=== PATIENT | female | born 1950 | race Caucasian/White ===

== ENCOUNTER 2021-04-07 04:38 | Observation (INO) | payer MEDICARE, MEDICAID ==
[~2021-04-07] VITALS: Ht 162.6 cm; Wt 83.2 kg
[2021-04-07] VITALS (8 sets, daily range): BP systolic 127–156; BP diastolic 69–88
[~2021-04-07 04:38] MED LIST: ACET12.57 PO; ASPI-485 PO; CETI10TA77 PO; CLOP75TA52 PO; DAPA10TA PO; DICL75TA2 PO; FLUT100B IH; FLUT16SP; GABA300C10 PO; GEMF600T20 PO; ISOS20TA9 PO; ISOS60TA57 PO; LISI1TAB20 PO; LISI1TAB23 PO; METF10007 PO; METO25TA2 PO; NYST15CR TP; TRAM50TA PO
--- NOTE | 2021-04-07 04:44 | NUR ---
Patient arrived to ED A&O x3, no acute distress noted; accompanied by her daughter. As per patient she has been having nausea and vomiting for the past 3 days. Connected to front tender. History of CHF, CAD, CABG X4, HTN, High Cholesterol, DM, Vertigo, Gout. Patient is allergic to darvocet. Family at bedside.
[2021-04-07] MEDS ORDERED: NS 500ML 500 ML IV STA ×2 (05:07→06:15)
[2021-04-07] MEDS ORDERED: ZOFRAN IV STA ×2 (05:07→06:17)
[2021-04-07] MEDS ORDERED: ZOFRAN ONE (05:16)
[2021-04-07] MEDS ORDERED: NS 1000ML 1,000 ML ONE (05:16)
--- NOTE | 2021-04-07 05:19 | ER.PDOC ---
General Chief Complaint: Nausea,Vomiting,Diarrhea Stated Complaint: VOMITING Time seen by : 05:00 Source: patient Exam Limitations: no limitations History of Present Illness Initial Comments She states she has been vomiting 2-3 times/day for the past 4 days. No diarrhea, bloody stools, abdominal pain. She states she has had 3 black stools in the past 24 hours. SHe states she has a history of GI bleed 4 years ago. She is taking aspirin, plavix, and diclofenac. She states she had an episode of chest pain in her left chest and took a nitro with relief of the pain. She states she got short of breath, nauseated, and clammy with the chest pain. She has a history of 4 stents. Last stent was 1 year ago. Visual Merchandising Coordinator is Dr. Adamson. Allergies: Coded Allergies: propoxyphene (Verified Allergy, Severe, SWELLING, 12/27/15) Home Meds Active Scripts Ascorbic Acid (VITAMIN C) 500 Mg Capsule.er, 1 CAP PO QD for 30 Days, #30 CAP 0 Refills Prov:EMY BURNETT MD 04/07/21 Vitamin E Mixed (VITAMIN E) 1,000 Unit Capsule, 1000 UNIT PO DAILY24, #30 CAPSULE Prov:EMY BURNETT MD 04/07/21 Chromium Picolinate (CHROMIUM PICOLINATE) 1,000 Mcg Tablet, 1000 MCG PO DAILY24 for 30 Days, TAB Prov:EMY BURNETT MD 04/07/21 Cranberry Extract (CRANBERRY) 250 Mg Capsule, 1 CAP PO BID PRN for BACK PAIN for 30 Days, #60 CAP 0 Refills Prov:EMY BURNETT MD 04/07/21 Echinacea (Echinacea) 380 Mg Capsule, 760 MG PO DAILY24, #60 CAPSULE Prov:EMY BURNETT MD 04/07/21 Ferrous Sulfate (IRON) 325 Mg Tablet, 1 TAB PO QD for 30 Days, #30 TAB 0 Refills Prov:EMY BURNETT MD 04/07/21 [place]-3 Fatty Acids/Fish Oil (OMEGA 3 1,000 MG SOFTGEL) 1 Each Capsule, 2 CAP PO BID for 30 Days, #60 CAP 0 Refills WITH MEALS Prov:EMY BURNETT MD 04/07/21 Nitroglycerin (NITROGLYCERIN) 0.4 Mg Tab.subl, 1 TAB SL PRN for chest pain, #25 TAB 0 Refills 1st sign of attack; may repeat every 5 mins; if pain persists after 3 in 15 min, medical attention is recommended Prov:EMY BURNETT MD 04/07/21 Atorvastatin 20MG (LIPITOR 20MG) 20 Mg Tablet, 1 TAB PO DAILY, #90 TAB 3 Refills Prov:EMY BURNETT MD 04/07/21 Lorazepam (ATIVAN) 0.5 Mg Tablet, 0.5 MG PO DAILY24 for 30 Days, TAB Prov:EMY BURNETT MD 04/07/21 Allopurinol (ALLOPURINOL) 300 Mg Tablet, 1 TAB PO DAILY, #30 TAB 3 Refills Prov:EMY BURNETT MD 04/07/21 Famotidine (FAMOTIDINE) 40 Mg Tablet, 1 TAB PO DAILY, #30 TAB 3 Refills Prov:EMY BURNETT MD 04/07/21 Empagliflozin (Jardiance) 25 Mg Tablet, 25 MG PO AM, #30 TAB Prov:EMY BURNETT MD 04/07/21 Fluoxetine Hcl (FLUOXETINE HCL) 40 Mg Capsule, 1 CAP PO DAILY, #30 CAP 2 Refills Prov:EMY BURNETT MD 04/07/21 Meclizine Hcl (MECLIZINE HCL) 25 Mg Tablet, 1 TAB PO TID, #90 TAB Prov:EMY BURNETT MD 04/07/21 Metoprolol Succinate (METOPROLOL SUCCINATE) 50 Mg Tab.er.24h, 1 TAB PO DAILY, #90 TAB 3 Refills Prov:EMY BURNETT MD 04/07/21 Isosorbide Mononitrate (ISOSORBIDE MONONITRATE ER) 60 Mg Tab.er.24h, 2 TAB PO DAILY, #30 TAB 5 Refills Prov:EMY BURNETT MD 04/07/21 Lisinopril/Hydrochlorothiazide (LISINOPRIL-HCTZ 10-12.5 MG TAB) 1 Each Tablet, 1 TAB PO DAILY, #30 TAB 5 Refills Prov:EMY BURNETT MD 04/07/21 Aspirin (ASPIRIN) 81 Mg Tab.chew, 1 TAB PO DAILY, #30 TAB 3 Refills Prov:EMY BURNETT MD 04/07/21 Gabapentin (GABAPENTIN) 600 Mg Tablet, 1 TAB PO TID, #90 TAB 3 Refills Prov:EMY BURNETT MD 04/07/21 Reported Medications Diclofenac Sodium (DICLOFENAC SODIUM) 75 Mg Tablet.dr, 1 TAB PO BID, #60 TAB 1 Refill 01/22/17 Gemfibrozil (GEMFIBROZIL) 600 Mg Tablet, 1 TAB PO BID, #60 TAB 5 Refills 03/15/16 Clopidogrel Bisulfate (PLAVIX) 75 Mg Tablet, 1 TAB PO DAILY, #90 TAB 1 Refill 03/10/16 Metformin Hcl (METFORMIN HCL) 1,000 Mg Tablet, 1 TAB PO BID, #60 TAB 5 Refills 12/27/15 Discontinued Reported Medications Fluticasone Propionate (FLUTICASONE PROPIONATE) 16 Gm [place].susp, 2 SPR NA DAILY, #1 INHALER 11 Refills 03/10/16 Metoprolol Succinate (TOPROL XL) 25 Mg Tab.er.24h, 1 TAB PO DAILY, #30 TAB 5 Refills 03/10/16 Cetirizine Hcl (ZYRTEC) 10 Mg Tablet, 1 TAB PO DAILY, #30 TAB 2 Refills 12/27/15 Acetaminophen with Codeine (Acetamin-Codein 300-30 mg/12.5) 12.5 Ml Solution, 12.5 ML PO TID 12/27/15 Gabapentin (GABAPENTIN) 300 Mg Capsule, 1 CAP PO TID, #90 CAP 5 Refills 12/27/15 Dapagliflozin Propanediol (Farxiga) 10 Mg Tablet, 10 MG PO DAILY, TABLET 12/27/15 Vital Signs First Vital Signs Date Time Temp Pulse Resp B/P (MAP) Pulse Ox O2 Delivery O2 Flow Rate FiO2 04/07/21 04:44 97.9 19 19 156/84 (108) 95 Room Air Last Vital Signs Date Time Temp Pulse Resp B/P (MAP) Pulse Ox O2 Delivery O2 Flow Rate FiO2 04/07/21 05:43 97.5 113 20 127/77 (94) 93 Room Air Past Medical History Medical History: coronary artery disease, cardiac problems, diabetes, high cholesterol, hypertension Surgical History: appendectomy, cholecystectomy, hysterectomy, stent Family History Significant Family History: heart disease Social History Smoking: non-smoker Alcohol Use: none Drug Use: none Constitutional: denies fever EENTM: denies ear pain, denies throat pain Respiratory: denies cough; shortness of breath Cardiovascular: chest pain; denies lightheadedness, denies syncope Gastrointestinal: denies abdominal pain, denies diarrhea; nausea; denies rectal bleeding; vomiting Genitourinary: denies dysuria, denies hematuria Musculoskeletal: denies back pain Skin: denies change in color, denies rash Hematologic/Lymphatic: easy bleeding, easy bruising All Other Systems: Reviewed and Negative Physical Exam General Appearance: No Apparent Distress, WD/WN, Obese HEENT: PERRL/EOMI, Normal ENT Inspection, Pharynx Normal Neck: Non-Tender, Full Range of Motion, Supple, Normal Inspection Respiratory: chest non-tender, lungs clear, normal breath sounds, no respiratory distress, no accessory muscle use Cardiovascular: Normal Peripheral Pulses, Regular Rate, Rhythm, No Edema, No Murmur, Tachycardia Gastrointestinal: Normal Bowel Sounds, Non Tender, Soft, Other (morbidly obese) Rectal: Normal Rectal Tone, Black Stool Back: Normal Inspection, No CVA Tenderness, No Vertebral Tenderness Extremities: Normal Range of Motion, Non-Tender, Normal Inspection, No Pedal Edema, No Calf Tenderness, Normal Capillary Refill, Pelvis Stable Neurologic/Psychiatric: jitterbug operator II-XII NML as Tested, No Motor/Sensory Deficits, Alert, Normal Mood/Affect, Oriented x 3 Skin: Warm/Dry, Pallor Results/Orders Results/Orders Orders - EMY BURNETT MD Cbc With Auto Diff (04/07/21 05:07) Comprehensive Metabolic Panel (04/07/21 05:07) Troponin I (04/07/21 05:07) Probnp B-Type Forestry Crew Chief (04/07/21 05:07) PT (04/07/21 05:07) Partial Thromboplastin Time. (04/07/21 05:07) Helicobacter Pylori (04/07/21 05:07) Ekg-Routine (04/07/21 05:07) Saline Lock (04/07/21 05:07) Lipase (04/07/21 05:07) Ondansetron Hcl/Pf (Zofran) (04/07/21 05:07) 0.9 % Sodium Chloride (Ns 500ml) (04/07/21 05:07) 0.9 % Sodium Chloride (Ns 1000ml) (04/07/21 05:16) Ondansetron Hcl/Pf (Zofran) (04/07/21 05:16) Urinalysis (04/07/21 05:20) 0.9 % Sodium Chloride (Ns 500ml) (04/07/21 06:15) Ondansetron Hcl/Pf (Zofran) (04/07/21 06:17) Pantoprazole Sodium (Protonix Iv) (04/07/21 06:17) Admit Orders (04/07/21 06:21) Vital Signs Date Time Temp Pulse Resp B/P (MAP) Pulse Ox O2 Delivery O2 Flow Rate FiO2 04/07/21 05:43 97.5 113 20 127/77 (94) 93 Room Air 04/07/21 04:44 97.9 119 19 04/07/21 04:44 97.9 119 19 95 04/07/21 04:44 97.9 19 19 156/84 (108) 95 Room Air Administered Medications Medications (Trade) Dose Ordered Sig/Tete Route PRN Reason Start Time Stop Time Status Last Admin Dose Admin Ondansetron HCl (Zofran) 4 mg OT STAT IV 04/07/21 05:07 04/07/21 05:12 DC 04/07/21 05:21 4 MG Ondansetron HCl (Zofran) 4 mg OT STAT IV 04/07/21 06:17 04/07/21 06:18 UNV 04/07/21 06:24 4 MG Sodium Chloride 500 ml @ 500 mls/hr OT STAT IV 04/07/21 05:07 04/07/21 06:07 DC 04/07/21 05:21 500 MLS/HR Sodium Chloride 500 ml @ 500 mls/hr OT STAT IV 04/07/21 06:15 04/07/21 07:14 UNV 04/07/21 06:17 500 MLS/HR Laboratory Tests Test 04/07/21 05:07 04/07/21 05:15 04/07/21 05:35 POC Stool Occult Blood POSITIVE (NEGATIVE) Helicobacter pylori Screen NEGATIVE (NEGATIVE) White Blood Count 9.6 10^3/uL (4.5-11.0) Red Blood Count 3.71 10^6/uL (4.00-5.20) L Hemoglobin 11.2 g/dL (12.0-15.0) L Hematocrit 35.0 % (36.0-46.0) L Mean Corpuscular Volume 94.3 fL (78-100) Mean Corpuscular Hemoglobin 30.2 pg (26-34) Mean Corpuscular Hemoglobin Concent 32.0 g/dL (33-36.5) L Red Cell Distribution Width 14.7 % (11.5-14.5) H Platelet Count 326 10^3/uL (150-400) Mean Platelet Volume 8.4 fL (7.8-11.0) Neutrophils (%) (Auto) 67.9 % (41.0-85.0) Lymphocytes (%) (Auto) 19.5 % (24.0-44.0) L Monocytes (%) (Auto) 11.1 % (5.0-12.0) Neutrophils # (Auto) 6.5 10^3/uL (1.8-7.7) Lymphocytes # (Auto) 1.87 10^3/uL1 (1.0-4.8) Monocytes # (Auto) 1.1 10^3/uL (0.3-0.8) H Absolute Immature Granulocyte (auto 0.04 10^3 u/L (0-2) Absolute Eosinophils (auto) 0.1 10^3/uL (0.0-0.2) Immature Granulocytes % 0.40 % (0.00-0.50) Eosinophils % 0.6 % (0.0-5.0) Basophils % 0.5 % (0.0-0.2) H Basophils # 0.1 10^3/uL (0.0-0.1) Prothrombin Time 12.1 SEC (9.6-12.0) H Prothrombin Time INR (Non-Therap) 1.1 Activated Partial Thromboplast Time 23.2 SEC (24.67-30.72) Sodium Level 135 mmol/L (132-145) Potassium Level 4.7 mmol/L (3.6-5.2) Chloride Level 101.0 mmol/L (96-109) Carbon Dioxide Level 19.1 mmol/L (20.0-32) L Anion Gap 19.6 Blood Urea Nitrogen 14 mg/dL (7-18) Creatinine 0.70 mg/dL (0.59-1.40) Estimated GFR () 100.7 (>/=60) Est GFR (CKD-EPI)(Non-Afr [place]) 83.2 (>/=60) BUN/Creatinine Ratio 20.0 Glucose Level 141 mg/dL (70-110) H Calcium Level 9.2 mg/dL (8.4-10.5) Total Bilirubin 0.3 mg/dL (0.2-1.0) Aspartate Amino Transferase (AST) 23 U/L (0-35) Alanine Aminotransferase (ALT) 23 U/L (12-78) Alkaline Phosphatase 52 U/L (50-136) Troponin I < 0.02 ng/mL (0.00-0.05) Pro-B-Type Natriuretic Peptide 116 pg/mL (0-125) Total Protein 7.8 g/dL (6.4-8.2) Albumin 3.5 g/dL (3.4-5.0) Globulin 4.3 Albumin/Globulin Ratio 0.813 Lipase 269 U/L (114-286) Progress Progress CBC shows Hgb 11.2, HCT 33 down from Hgb 14, 4 years ago. Stool occult blood positive. H. Pylori negative.CMP shows CO2 19, otherwise unremarkable. PT/PTT mildly elevated. INR normal. ECG sinus tachycardia, Q-waves in inferior leads, poor R-waves in anterior leads, non specific ST changes. Troponin negative. She was given two, 500 ml IV bolus and zofran 2 doses, 4 mg IVP with improvement in her heart rate and nausea. She was given protonix for upper GI bleed. She has upper GI bleed, vomiting, chest pain and will need to be admitted for further evaluation and treatment. At [address] Simmons who agreed to admit the pt. EKG/XRAY/CT/US EKG: NSR (tachycardia), QRS (poor R-wave rpogression), nonspecific ST T wave chg, abnormal Q waves (inferior leads) ER DEPART Departure Time of Disposition: 06:25 Disposition: 09 ADMITTED INPATIENT Impression: Primary Impression: GI bleed Additional Impressions: Unstable angina Vomiting Condition: Improved If Transfer, List PT Destinati: 624 Dr. Simmons agrees to admit pt. Referrals: DAYAMI ARANDA GLOVE CLEANER (PCP) PRIMARY CARE PROVIDER Scripts Ascorbic Acid (VITAMIN C) 500 Mg Capsule.er 1 CAP PO QD for 30 Days, #30 CAP 0 Refills Prov: EMY BURNETT MD 04/07/21 Vitamin E Mixed (VITAMIN E) 1,000 Unit Capsule 1000 UNIT PO DAILY24, #30 CAPSULE Prov: EMY BURNETT MD 04/07/21 Chromium Picolinate (CHROMIUM PICOLINATE) 1,000 Mcg Tablet 1000 MCG PO DAILY24 for 30 Days, TAB Prov: EMY BURNETT MD 04/07/21 Cranberry Extract (CRANBERRY) 250 Mg Capsule 1 CAP PO BID PRN for BACK PAIN for 30 Days, #60 CAP 0 Refills Prov: EMY BURNETT MD 04/07/21 Echinacea (Echinacea) 380 Mg Capsule 760 MG PO DAILY24, #60 CAPSULE Prov: EMY BURNETT MD 04/07/21 Ferrous Sulfate (IRON) 325 Mg Tablet 1 TAB PO QD for 30 Days, #30 TAB 0 Refills Prov: EMY BURNETT MD 04/07/21 [place]-3 Fatty Acids/Fish Oil (OMEGA 3 1,000 MG SOFTGEL) 1 Each Capsule 2 CAP PO BID for 30 Days, #60 CAP 0 Refills WITH MEALS Prov: EMY BURNETT MD 04/07/21 Nitroglycerin (NITROGLYCERIN) 0.4 Mg Tab.subl 1 TAB SL PRN for chest pain, #25 TAB 0 Refills 1st sign of attack; may repeat every 5 mins; if pain persists after 3 in 15 min, medical attention is recommended Prov: EMY BURNETT MD 04/07/21 Atorvastatin 20MG (LIPITOR 20MG) 20 Mg Tablet 1 TAB PO DAILY, #90 TAB 3 Refills Prov: EMY BURNETT MD 04/07/21 Lorazepam (ATIVAN) 0.5 Mg Tablet 0.5 MG PO DAILY24 for 30 Days, TAB Prov: EMY BURNETT MD 04/07/21 Allopurinol (ALLOPURINOL) 300 Mg Tablet 1 TAB PO DAILY, #30 TAB 3 Refills Prov: EMY BURNETT MD 04/07/21 Famotidine (FAMOTIDINE) 40 Mg Tablet 1 TAB PO DAILY, #30 TAB 3 Refills Prov: EMY BURNETT MD 04/07/21 Empagliflozin (Jardiance) 25 Mg Tablet 25 MG PO AM, #30 TAB Prov: EMY BURNETT MD 04/07/21 Fluoxetine Hcl (FLUOXETINE HCL) 40 Mg Capsule 1 CAP PO DAILY, #30 CAP 2 Refills Prov: EMY BURNETT MD 04/07/21 Meclizine Hcl (MECLIZINE HCL) 25 Mg Tablet 1 TAB PO TID, #90 TAB Prov: EMY BURNETT MD 04/07/21 Metoprolol Succinate (METOPROLOL SUCCINATE) 50 Mg Tab.er.24h 1 TAB PO DAILY, #90 TAB 3 Refills Prov: EMY BURNETT MD 04/07/21 Isosorbide Mononitrate (ISOSORBIDE MONONITRATE ER) 60 Mg Tab.er.24h 2 TAB PO DAILY, #30 TAB 5 Refills Prov: EMY BURNETT MD 04/07/21 Lisinopril/Hydrochlorothiazide (LISINOPRIL-HCTZ 10-12.5 MG TAB) 1 Each Tablet 1 TAB PO DAILY, #30 TAB 5 Refills Prov: EMY BURNETT MD 04/07/21 Aspirin (ASPIRIN) 81 Mg Tab.chew 1 TAB PO DAILY, #30 TAB 3 Refills Prov: EMY BURNETT MD 04/07/21 Gabapentin (GABAPENTIN) 600 Mg Tablet 1 TAB PO TID, #90 TAB 3 Refills Prov: EMY BURNETT MD 04/07/21 Duration or Time Spent with Pa: 40 min Critical Care Note Total Time (mins): 30 Comments pt. with tachycardia and GI bleed history. Chris was given 2 boluses of IVF with improvement in HR. Critical care time included obtaining history, physical exam, ordering studies, reevaluation of pt. after treatment, evaluation of lab studies, Problem Qualifiers Primary Impression: GI bleed GI bleed type/associated pathology: unspecified gastrointestinal hemorrhage type Qualified Codes: K92.2 - Gastrointestinal hemorrhage, unspecified Additional Impressions: Vomiting Vomiting type: unspecified Vomiting Intractability: non-intractable Nausea presence: with nausea Qualified Codes: R11.2 - Nausea with vomiting, unspecified EMY BURNETT MD Apr 07, 2021 05:18
[2021-04-07 05:44] LABS: BASOPHIL # 0.1 10^3/uL (0.0-0.1); BASOPHIL % 0.5 % (0.0-0.2); EOSINOPHIL # 0.1 10^3/uL (0.0-0.2); EOSINOPHIL % 0.6 % (0.0-5.0); LYMPHOCYTES # 1.87 10^3/uL1 (1.0-4.8); LYMPHOCYTES % 19.5 % (24.0-44.0); MEAN CORP HGB 30.2 pg (26-34); MONOCYTES # 1.1 10^3/uL (0.3-0.8); MONOCYTES % 11.1 % (5.0-12.0); NEUTROPHIL # 6.5 10^3/uL (1.8-7.7); NEUTROPHILS % 67.9 % (41.0-85.0); PLATELET COUNT 326 10^3/uL (150-400); RED CELL DISTRIBUTION WIDTH 14.7 % (11.5-14.5)
--- NOTE | 2021-04-07 05:45 | PCM.EKG ---
[facility] Test Date: 2021-04-07 Test Time: 05:35:29 Pat Name: ESTELLA MARRERO Department: Room: Gender: F Branch Officer: ROSA : 1950 Requested By: EMY BURNETT Order Number: [id number] Reading MD: Measurements Intervals [place] Rate: 112 P: 25 NM: 154 QRS: -43 QRSD: 76 T: 11 QT: 368 QTc: 503 Interpretive Statements Sinus tachycardia Inferior infarct, old Consider anterior infarct Prolonged QT interval Baseline wander in lead(s) V4 Compared to ECG 04/29/2019 15:32:04 Prolonged QT interval now present Sinus rhythm no longer present Myocardial infarct finding still present Please click the below link to view image of tracing.
[2021-04-07 06:12] LABS: ALANINE AMINOTRANSFERASE(ML) 23 U/L (12-78); ALKALINE PHOSPHATASE 52 U/L (50-136); ASPARTATE AMINO TRANSFERASE 23 U/L (0-35); CALCIUM 9.2 mg/dL (8.4-10.5); CARBON DIOXIDE 19.1 mmol/L (20.0-32); GLUCOSE 141 mg/dL (70-110)
[2021-04-07] MEDS ORDERED: PROTONIX IV IV STA (06:17)
[2021-04-07] MEDS ORDERED: GABA600T7 PO (06:23)
[2021-04-07] MEDS ORDERED: FERR-39 PO (06:23)
[2021-04-07] MEDS ORDERED: VITA100018 PO (06:23)
[2021-04-07] MEDS ORDERED: EMPA25TA PO (06:23)
[2021-04-07] MEDS ORDERED: MECL-95 PO (06:23)
[2021-04-07] MEDS ORDERED: LISI1TAB23 PO (06:23)
[2021-04-07] MEDS ORDERED: ECHI380C3 PO (06:23)
[2021-04-07] MEDS ORDERED: NITR0.4T26 SL (06:23)
[2021-04-07] MEDS ORDERED: ALLO300T PO (06:23)
[2021-04-07] MEDS ORDERED: FAMO40TA4 PO (06:23)
[2021-04-07] MEDS ORDERED: CHRO1000 PO (06:23)
[2021-04-07] MEDS ORDERED: ISOS60TA57 PO (06:23)
[2021-04-07] MEDS ORDERED: ASPI-667 PO (06:23)
[2021-04-07] MEDS ORDERED: CRAN250C PO (06:23)
[2021-04-07] MEDS ORDERED: ASCO500C PO (06:23)
[2021-04-07] MEDS ORDERED: FLUO40CA2 PO (06:23)
[2021-04-07] MEDS ORDERED: ATOR20TA PO (06:23)
[2021-04-07] MEDS ORDERED: OMEG-13 PO (06:23)
[2021-04-07] MEDS ORDERED: METO-237 PO (06:23)
[2021-04-07] MEDS ORDERED: LORA-447 PO (06:23)
--- NOTE | 2021-04-07 08:00 | NUR ---
ARRIVAL PT ARRIVED TO UNIT AT THIS TIME IN STABLE CONDITION. THIS NURSE ASSUMED CARE OF PT AT THIS TIME.
--- NOTE | 2021-04-07 09:35 | PCM.HP ---
History of Present Illness Reason for Visit: Nausea and vomiting History of Present Illness Ms. Pham is a 70-year-old female with a past medical history of CAD status post 4 stents, Type 2 diabetes, hyperlipidemia, hypertension, and CKD Presents to the ED due to multiple days of nausea and vomiting. Patient reports nausea and vomiting 3-4 times per day since this past Friday is unable to keep any food down. She denies any blood in the vomit. She does endorse having constipation for the past several weeks. Other symptoms include epigastric pain that started this morning in addition describes as dull 8 or 10 pain that is constant. Stool occult blood in the ED was found to be positive. Patient endorses taking aspirin, plavix, and diclofenac. Past Medical History Cardiac: CAD, HTN, Hyperlipidemia, Other Pulmonary: COPD Renal/: Chronic Renal Insuff Endocrine: Diabetes, Hypothyroidism Past Surgical History: Other Past Social History Smoke: No Alcohol: rare Lives: with Family Travel Hx EBOLA RISK:Travel to/contact w: No Review of Systems Constitutional: Chills, Weakness; No: Fever Eyes: No: Pain, Vision change, Conjunctivae inflammation ENT: No: Throat pain, Throat swelling Respiratory: Shortness of breath Cardiovascular: No: Chest Pain, Palpitations Gastrointestinal: Nausea, Vomiting, Abdominal Pain, Constipation; No: Diarrhea Genitourinary: No Dysuria, No Frequency, No Incontinence Musculoskeletal: No: neck pain, shoulder pain, back pain Skin: No: Rash, Lesions, Jaundice Neurological: No: Weakness, Numbness, Incoordination, Change in speech Allergies: Coded Allergies: propoxyphene (Verified Allergy, Severe, SWELLING, 12/27/15) Scheduled Allopurinol (Allopurinol), 1 TAB PO DAILY Ascorbic Acid (Vitamin C), 1 CAP PO QD Aspirin (Aspirin), 1 TAB PO DAILY Atorvastatin 20MG (Lipitor 20MG), 1 TAB PO DAILY Chromium Picolinate (Chromium Picolinate), 1,000 MCG PO DAILY24 Clopidogrel Bisulfate (Plavix), 1 TAB PO DAILY, (Reported) Diclofenac Sodium (Diclofenac Sodium), 1 TAB PO BID, (Reported) Echinacea (Echinacea), 760 MG PO DAILY24 Empagliflozin (Jardiance), 25 MG PO AM Famotidine (Famotidine), 1 TAB PO DAILY Ferrous Sulfate (Iron), 1 TAB PO QD Fluoxetine Hcl (Fluoxetine Hcl), 1 CAP PO DAILY Gabapentin (Gabapentin), 1 TAB PO TID Gemfibrozil (Gemfibrozil), 1 TAB PO BID, (Reported) Isosorbide Mononitrate (Isosorbide Mononitrate Er), 2 TAB PO DAILY Lisinopril/Hydrochlorothiazide (Lisinopril-Hctz 10-12.5 Mg Tab), 1 TAB PO DAILY Lorazepam (Ativan), 0.5 MG PO DAILY24 Meclizine Hcl (Meclizine Hcl), 1 TAB PO TID Metformin Hcl (Metformin Hcl), 1 TAB PO BID, (Reported) Metoprolol Succinate (Metoprolol Succinate), 1 TAB PO DAILY Nitroglycerin (Nitroglycerin), 1 TAB SL PRN [place]-3 Fatty Acids/Fish Oil ([place] 3 1,000 Mg Softgel), 2 CAP PO BID Vitamin E Mixed (Vitamin E), 1,000 UNIT PO DAILY24 Scheduled PRN Cranberry Extract (Cranberry), 1 CAP PO BID PRN for BACK PAIN Discontinued Medications Acetaminophen with Codeine (Acetamin-Codein 300-30 mg/12.5), 12.5 ML PO TID, (Reported) Discontinued Reason: No Longer Taking Cetirizine Hcl (Zyrtec), 1 TAB PO DAILY, (Reported) Discontinued Reason: No Longer Taking Dapagliflozin Propanediol (Farxiga), 10 MG PO DAILY, (Reported) Discontinued Reason: Discontinue Fluticasone Propionate (Fluticasone Propionate), 2 SPR NA DAILY, (Reported) Discontinued Reason: No Longer Taking Gabapentin (Gabapentin), 1 CAP PO TID, (Reported) Discontinued Reason: Prescription changed Metoprolol Succinate (Toprol Xl), 1 TAB PO DAILY, (Reported) Discontinued Reason: Prescription changed VTE VTE Risk Total Score: 3 VTE Risk Score VTE Risk: Score 0-1 = Low Risk (Aggressive mobilization; early ambulation; no VTE prophylaxis required) Score 2: Moderate Risk (Intermittent/Pneumatic Compression Device OR Lovenox/Heparin/Coumadin) Score 3-4: High Risk (Intermittent/Pneumatic Compression Device AND Lovenox/Heparin/Coumadin) Score > or =5: Highest Risk (Intermittent/Pneumatic Compression Device AND Lovenox/Heparin/Coumadin) VTE VTE Present on Admission: No Currently receiving anticoagul: No VTE Risk Total Score: 3 Exam Vital Signs Vital Signs Date Time Temp Pulse Resp B/P (MAP) Pulse Ox O2 Delivery O2 Flow Rate FiO2 04/07/21 07:12 97.5 105 20 147/74 (98) 97 Room Air General Appearance: Alert, Oriented X3, Cooperative HEENT: Atraumatic, PERRLA, EOMI Respiratory: Clear to auscultation, Normal air movement Cardiovascular: Regular rate, No murmurs Abdominal: Normal bowel sounds, Soft, Other (epigastric tenderness ) Extremities: No clubbing, No cyanosis, No edema Skin: No rash, No lesions Neuro: Normal speech, Normal tone Psych/Mental Status: Mental status NL, Mood NL Assessment/Plan Assessment/Plan Assessment/Plan ASSESSMENT Acute GI bleed CAD s/p 4 stents Hypertension Hyperlipidemia Non insulin dependent Type 2 diabetes PLAN keep NPO, protonic IV BID Trend hgb Hold home medications while NPO Will consult Surgery to consider EGD SSI Fluid resuscitate DVT: SCDs Code: Full Patient History: Cerebrovascular disorder 32 MOTHER, Onset:60 years & older Congestive heart failure 32 MOTHER, Onset:60 years & older 33 FATHER, Onset:60 years & older Diabetes insipidus 32 MOTHER 33 FATHER, Onset:50's - 60 G8 BROTHER, Onset:40's - 50 G8 SISTER, Onset:40's - 50 Hypertension ISABELLA JONES MD Apr 07, 2021 09:35
[2021-04-07] MEDS ORDERED: ZOFRAN IV PRN (12:30)
--- NOTE | 2021-04-07 12:43 | PRM.CONS ---
Consultation Reason for Consult: Reason for Consultation: Abdominal pain, GI bleed, decreased hemoglobin History of Present Illness History of Patient Comments Patient states that she began having epigastric pain and nausea on Friday. The nausea progressed to vomiting. She was barely able to keep water down. She continued to take her medications, which include a baby aspirin, Plavix, and diclofenac.She was not able to eat most of the week, and continued with the nausea and pain. She then began having bowel movements and lower abdominal pain. Eventually, she did tell her daughter she did not feel well, and a neighbor called the daughter, leading to her transportation to the emergency room. Patient states that she has not thrown up since before she came to the emergency room. She has not had any bowel movement since she has been here. The epigastric pain is still there, but has slightly improved. She still has some pain in her lower abdomen going across, which has been a chronic problem for her. She did have a bleeding ulcer approximately 5-1/2 years ago, and at that time she underwent an EGD. She has never had a colonoscopy.She has not been on any H2 blockers. She has had 4 stents, and the last one was more than 1 year ago.She has had 1 [place]. Vitals & Lab Laboratory Tests Test 04/07/21 05:07 04/07/21 05:15 04/07/21 05:35 04/07/21 11:33 Bedside Stool Occult Blood POSITIVE Helicobacter pylori Screen NEGATIVE White Blood Count 9.6 10^3/uL Red Blood Count 3.71 10^6/uL Hemoglobin 11.2 g/dL Hematocrit 35.0 % Mean Corpuscular Volume 94.3 fL Mean Corpuscular Hemoglobin 30.2 pg Mean Corpuscular Hemoglobin Concent 32.0 g/dL Red Cell Distribution Width 14.7 % Platelet Count 326 10^3/uL Mean Platelet Volume 8.4 fL Neutrophils (%) (Auto) 67.9 % Lymphocytes (%) (Auto) 19.5 % Monocytes (%) (Auto) 11.1 % Neutrophils # (Auto) 6.5 10^3/uL Lymphocytes # (Auto) 1.87 10^3/uL1 Monocytes # (Auto) 1.1 10^3/uL Absolute Immature Granulocyte (auto 0.04 10^3 u/L Absolute Eosinophils (auto) 0.1 10^3/uL Immature Granulocytes % 0.40 % Eosinophils % 0.6 % Basophils % 0.5 % Basophils # 0.1 10^3/uL Prothrombin Time 12.1 SEC Prothrombin Time INR (Non-Therap) 1.1 Activated Partial Thromboplast Time 23.2 SEC Sodium Level 135 mmol/L Potassium Level 4.7 mmol/L Chloride Level 101.0 mmol/L Carbon Dioxide Level 19.1 mmol/L Anion Gap 19.6 Blood Urea Nitrogen 14 mg/dL Creatinine 0.70 mg/dL Estimated GFR () 100.7 Est GFR (CKD-EPI)(Non-Afr [place]) 83.2 BUN/Creatinine Ratio 20.0 Glucose Level 141 mg/dL Calcium Level 9.2 mg/dL Total Bilirubin 0.3 mg/dL Aspartate Amino Transf (AST/SGOT) 23 U/L Alanine Aminotransferase (ALT/SGPT) 23 U/L Alkaline Phosphatase 52 U/L Troponin I < 0.02 ng/mL Pro-B-Type Natriuretic Peptide 116 pg/mL Total Protein 7.8 g/dL Albumin 3.5 g/dL Globulin 4.3 Albumin/Globulin Ratio 0.813 Lipase 269 U/L Bedside Glucose 116 Test 04/07/21 12:00 Hemoglobin 10.6 g/dL Current Medications Medications (Trade) Dose Ordered Sig/Tete Route PRN Reason Start Time Stop Time Status Last Admin Dose Admin Ondansetron HCl (Zofran) 4 mg OT STAT IV 04/07/21 05:07 04/07/21 05:12 DC 04/07/21 05:21 Sodium Chloride 500 ml @ 500 mls/hr OT STAT IV 04/07/21 05:07 04/07/21 06:07 DC 04/07/21 05:21 Sodium Chloride 1,000 ml @ ud STK-MED ONCE .ROUTE 04/07/21 05:16 04/07/21 05:17 DC Ondansetron HCl (Zofran) 4 mg STK-MED ONCE .ROUTE 04/07/21 05:16 04/07/21 05:17 DC Sodium Chloride 500 ml @ 500 mls/hr OT STAT IV 04/07/21 06:15 04/07/21 09:25 DC 04/07/21 06:17 Ondansetron HCl (Zofran) 4 mg OT STAT IV 04/07/21 06:17 04/07/21 09:25 DC 04/07/21 06:24 Pantoprazole Sodium (Protonix Iv) 40 mg STAT STAT IV 04/07/21 06:17 04/07/21 09:25 DC 04/07/21 06:25 Pantoprazole Sodium (Protonix Iv) 40 mg BID IV 04/07/21 21:00 05/07/21 20:59 Ondansetron HCl (Zofran) 4 mg Q6HR PRN IV NAUSEA / VOMITING 04/07/21 12:30 05/07/21 12:29 Review of Systems Constitutional: Weakness, Malaise; No: Fever, Chills Eyes: No: Pain, Vision change, Conjunctivae inflammation, Eyelid inflammation, Redness ENT: No: Ear pain, Ear discharge, Nose pain, Nose discharge, Nose congestion, Mouth pain, Throat pain, Throat swelling Respiratory: Shortness of breath; No: Cough, Dry, Wheezing, Hemoptysis, Pleuritic Pain, Sputum Cardiovascular: Lt Headedness; No: Chest Pain, Palpitations Gastrointestinal: Nausea, Vomiting, Abdominal Pain, Constipation; No: Diarrhea Genitourinary: No Dysuria, No Frequency, No Incontinence, No Hematuria Musculoskeletal: No: neck pain, shoulder pain, arm pain, back pain, hand pain, leg pain, foot pain Skin: No: Rash, Lesions, Jaundice Neurological: No: Weakness, Numbness, Incoordination, Change in speech Other Patient is awake alert and oriented x3. EOMI. PERRLA. Heart is regular rate and rhythm. Lungs are clear to auscultation bilaterally. Abdomen is soft with good bowel sounds. Patient is slightly tender to palpation in the epigastric region. Abdomen is soft and without distention. She does state that it hurts with palpation all the way across her lower abdomen, essentially from iliac crest to iliac crest. She states it is more pain than a simple spasm.Pulses in all extremities with good range of motion. No evidence of neurologic deficit, but the patient is in bed. Allergies: Coded Allergies: propoxyphene (Verified Allergy, Severe, SWELLING, 12/27/15) Scheduled Allopurinol (Allopurinol), 1 TAB PO DAILY Ascorbic Acid (Vitamin C), 1 CAP PO QD Aspirin (Aspirin), 1 TAB PO DAILY Atorvastatin 20MG (Lipitor 20MG), 1 TAB PO DAILY Chromium Picolinate (Chromium Picolinate), 1,000 MCG PO DAILY24 Clopidogrel Bisulfate (Plavix), 1 TAB PO DAILY, (Reported) Diclofenac Sodium (Diclofenac Sodium), 1 TAB PO BID, (Reported) Echinacea (Echinacea), 760 MG PO DAILY24 Empagliflozin (Jardiance), 25 MG PO AM Famotidine (Famotidine), 1 TAB PO DAILY Ferrous Sulfate (Iron), 1 TAB PO QD Fluoxetine Hcl (Fluoxetine Hcl), 1 CAP PO DAILY Gabapentin (Gabapentin), 1 TAB PO TID Gemfibrozil (Gemfibrozil), 1 TAB PO BID, (Reported) Isosorbide Mononitrate (Isosorbide Mononitrate Er), 2 TAB PO DAILY Lisinopril/Hydrochlorothiazide (Lisinopril-Hctz 10-12.5 Mg Tab), 1 TAB PO DAILY Lorazepam (Ativan), 0.5 MG PO DAILY24 Meclizine Hcl (Meclizine Hcl), 1 TAB PO TID Metformin Hcl (Metformin Hcl), 1 TAB PO BID, (Reported) Metoprolol Succinate (Metoprolol Succinate), 1 TAB PO DAILY Nitroglycerin (Nitroglycerin), 1 TAB SL PRN [place]-3 Fatty Acids/Fish Oil ([place] 3 1,000 Mg Softgel), 2 CAP PO BID Vitamin E Mixed (Vitamin E), 1,000 UNIT PO DAILY24 Scheduled PRN Cranberry Extract (Cranberry), 1 CAP PO BID PRN for BACK PAIN Discontinued Medications Acetaminophen with Codeine (Acetamin-Codein 300-30 mg/12.5), 12.5 ML PO TID, (Reported) Discontinued Reason: No Longer Taking Cetirizine Hcl (Zyrtec), 1 TAB PO DAILY, (Reported) Discontinued Reason: No Longer Taking Dapagliflozin Propanediol (Farxiga), 10 MG PO DAILY, (Reported) Discontinued Reason: Discontinue Fluticasone Propionate (Fluticasone Propionate), 2 SPR NA DAILY, (Reported) Discontinued Reason: No Longer Taking Gabapentin (Gabapentin), 1 CAP PO TID, (Reported) Discontinued Reason: Prescription changed Metoprolol Succinate (Toprol Xl), 1 TAB PO DAILY, (Reported) Discontinued Reason: Prescription changed VTE VTE Risk Total Score: 2 VTE Risk Score VTE Risk: Score 0-1 = Low Risk (Aggressive mobilization; early ambulation; no VTE prophylaxis required) Score 2: Moderate Risk (Intermittent/Pneumatic Compression Device OR Lovenox/Heparin/Coumadin) Score 3-4: High Risk (Intermittent/Pneumatic Compression Device AND Lovenox/Heparin/Coumadin) Score > or =5: Highest Risk (Intermittent/Pneumatic Compression Device AND Lovenox/Heparin/Coumadin) Assessment/Plan Assessment/Plan Assessment/Plan ASSESSMENT Acute GI bleed CAD s/p 4 stents Hypertension Hyperlipidemia Non insulin dependent Type 2 diabetes PLAN keep NPO, protonic IV BID Trend hgb Hold home medications while NPO Will consult Surgery to consider EGD SSI Fluid resuscitate DVT: SCDs Code: Full The fact that the patient has not had any more emesis or bowel movements since being in the hospitalWould seem to indicate that the bleeding has decreased or stopped. She still has significant abdominal pain. I would like to monitor her further, watch her hemoglobins, and continue the H2 negrito. We will start some clears. If she improves, it is possible she may be discharged home, if not we will monitor her further. If she does Rebleed or have other issues, we may consider doing an upper scope or EGD today or in the morning.If she continues to improve and remained stable, she will be ultimately discharged home with a follow-up with Dr. Beaver in a few weeks to undergo upper and lower endoscopy.As per my conversation with Dr. Simmons, we will consider notifying the web retailer to question him on whether or not she still needs to remain on the Plavix, and this was mentioned with the family. It will be up to the car diologist, depending on the type of stent present. Also, we would like her off the diclofenac, and certainly make sure that she does take any meds such as aspirin or ibuprofen when she has food. Patient and family acknowledged. Patient History: Cerebrovascular disorder 32 MOTHER, Onset:60 years & older Congestive heart failure 32 MOTHER, Onset:60 years & older 33 FATHER, Onset:60 years & older Diabetes insipidus 32 MOTHER 33 FATHER, Onset:50's - 60 G8 BROTHER, Onset:40's - 50 G8 SISTER, Onset:40's - 50 Hypertension Plan ASSESSMENT Acute GI bleed CAD s/p 4 stents Hypertension Hyperlipidemia Non insulin dependent Type 2 diabetes PLAN keep NPO, protonic IV BID Trend hgb Hold home medications while NPO Will consult Surgery to consider EGD SSI Fluid resuscitate DVT: SCDs Code: Full ZARA CHAVEZ MD Apr 07, 2021 12:43
[2021-04-07] MEDS ORDERED: LANOLIN HYDROUS TP ONE (13:44)
[2021-04-07] MEDS ORDERED: LANOLIN HYDROUS TP PRN (14:00)
[2021-04-07] MEDS: PROTONIX IV IV SCH (20:54)
[2021-04-08 04:44] VITALS: BP 150/87
[2021-04-08 06:31] LABS: BASOPHIL # 0.1 10^3/uL (0.0-0.1); BASOPHIL % 0.5 % (0.0-0.2); EOSINOPHIL # 0.2 10^3/uL (0.0-0.2); EOSINOPHIL % 1.5 % (0.0-5.0); LYMPHOCYTES # 1.99 10^3/uL1 (1.0-4.8); LYMPHOCYTES % 20.1 % (24.0-44.0); MEAN CORP HGB 30.9 pg (26-34); MONOCYTES % 10.2 % (5.0-12.0); NEUTROPHIL # 6.7 10^3/uL (1.8-7.7); NEUTROPHILS % 67.7 % (41.0-85.0); PLATELET COUNT 328 10^3/uL (150-400); RED CELL DISTRIBUTION WIDTH 14.8 % (11.5-14.5)
[2021-04-08 06:49] LABS: CALCIUM 9.2 mg/dL (8.4-10.5); CARBON DIOXIDE 22.8 mmol/L (20.0-32)
[2021-04-08 08:00] VITALS: BP 150/76
[2021-04-08] MEDS: PROTONIX IV IV SCH (09:22)
[2021-04-08 11:45] VITALS: BP 159/92
[2021-04-08] MEDS ORDERED: PANT40TA3 PO (13:33)
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
[2021-04-08 15:15] VITALS: BP 155/84
[2021-04-08 15:30] VITALS: BP 155/84
--- NOTE | 2021-04-08 15:30 | NUR ---
DISCHARGE PATIENT PROVIDED WITH DISCHARGE PACKET INCLUDING INSTRUCTIONS TO CALL AND MAKE FOLLOW UP APPT WITH DR. KNIGHT, NEW PRESCRIPTIONS, AND EDUCATION. PATIENT DENIES HAVING ANY QUESTIONS OR CONCERNS AT THIS TIME. PATIENT IS STABLE WITH NO SIGNS OF DISTRESS NOTED AT THIS TIME. IV DC'D AT THIS TIME; NO REDNESS OR SWELLING NOTED AT SITE. PATIENT TAKEN TO PRIVATE VEHICLE VIA WHEELCHAIR ACCOMPANIED BY FAMILY AND THIS NURSE. RELINQUISHED CARE OF PATIENT AT THIS TIME.
== END 2021-04-08 15:30 | disposition home or self-care (01) ==
LOC: ER 04:38 → INTOOBSV 06:38 → UNDOADMIN 06:38 → UNDOADMOB 06:38 → MS 06:38 → EDBEDREQ 06:47 → UNDODISOB 04-08 15:30 → UNDODISIN 04-08 15:30
PROVIDERS: ADMIT Internal Medicine; ATTEND Internal Medicine
DX: K92.2 Gastrointestinal hemorrhage, unspecified (principal); I25.110 Atherosclerotic heart disease of native coronary artery with unstable angina pectoris; I12.9 Hypertensive chronic kidney disease with stage 1 through stage 4 chronic kidney disease, or unspecified chronic kidney disease; E11.22 Type 2 diabetes mellitus with diabetic chronic kidney disease; N18.9 Chronic kidney disease, unspecified; K59.00 Constipation, unspecified; E78.5 Hyperlipidemia, unspecified; J44.9 Chronic obstructive pulmonary disease, unspecified; E03.9 Hypothyroidism, unspecified; E78.00 Pure hypercholesterolemia, unspecified; Z79.82 Long term (current) use of aspirin; Z79.84 Long term (current) use of oral hypoglycemic drugs; Z90.710 Acquired absence of both cervix and uterus; Z79.899 Other long term (current) drug therapy; Z95.5 Presence of coronary angioplasty implant and graft
CPT/HCPCS: 36415 ×2; 80053 ×2; 82272; 82948 ×2; 83690; 83880; 84484; 85018 ×2; 85025 ×2; 85610; 85730; 86677; 93005; 96361; 96374; 96375; 96376 ×2; 99291; C9113 ×2; G0378 ×3; J2405; J7030

== ENCOUNTER 2021-04-16 14:31 | Emergency (ER) | payer MEDICARE, MEDICAID ==
[~2021-04-16] VITALS: Ht 160 cm; Wt 81.6 kg
[~2021-04-16 14:31] MED LIST changes: +ALLO300T PO; +ASCO500C PO; +ASPI-667 PO; +ATOR20TA PO; +CHRO1000 PO; +CRAN250C PO; +ECHI380C3 PO; +EMPA25TA PO; +FAMO40TA4 PO; +FERR-39 PO; +FLUO40CA2 PO; +GABA600T7 PO; +LORA-447 PO; +MECL-95 PO; +METO-237 PO; +NITR0.4T26 SL; +OMEG-13 PO; +PANT40TA3 PO; +VITA100018 PO
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
[2021-04-16 14:48] VITALS: BP 165/98
[2021-04-16] MEDS ORDERED: TORADOL IM ONE (15:00)
[2021-04-16] MEDS ORDERED: ROCEPHIN IM ONE (15:00)
[2021-04-16] MEDS ORDERED: LIDOCAINE VISCOUS MM STA (15:02)
[2021-04-16] MEDS ORDERED: MILK OF MAGNESIA PO STA (15:02)
[2021-04-16] MEDS ORDERED: PROTONIX IV IV STA (15:02)
[2021-04-16] MEDS ORDERED: LIDOCAINE VISCOUS ONE (15:10)
[2021-04-16] MEDS ORDERED: PROTONIX IV IV ONE (15:10)
[2021-04-16] MEDS ORDERED: MILK OF MAGNESIA ONE ×2 (15:10→15:12)
[2021-04-16] MEDS ORDERED: LACTATED RINGERS 1,000 ML ONE (15:10)
--- NOTE | 2021-04-16 15:12 | ER.PDOC ---
General Chief Complaint: Abdomen Pain Stated Complaint: ABD PAIN Time seen by MD: 15:06 Source: patient, family Exam Limitations: no limitations History of Present Illness Initial Comments Patient with history of upper GI bleed due Gastritis vs Peptic Ulcer, started on Protonix, however having worsening abdominal pain, however melena has resolved. Timing/Duration: 1 week Severity/Quality: moderate Radiation: epigastric Associated Symptoms: denies symptoms Exacerbated by: food Relieved By: nothing Allergies: Coded Allergies: propoxyphene (Verified Allergy, Severe, SWELLING, 12/27/15) Home Meds Active Scripts Pantoprazole Sodium (PROTONIX) 40 Mg Tablet.dr, 40 MG PO BID for 14 Days Prov:ISABELLA JONES MD 04/08/21 Ascorbic Acid (VITAMIN C) 500 Mg Capsule.er, 1 CAP PO QD for 30 Days, #30 CAP 0 Refills Prov:EMY BURNETT MD 04/07/21 Vitamin E Mixed (VITAMIN E) 1,000 Unit Capsule, 1000 UNIT PO DAILY24, #30 CAPSULE Prov:EMY BURNETT MD 04/07/21 Chromium Picolinate (CHROMIUM PICOLINATE) 1,000 Mcg Tablet, 1000 MCG PO DAILY24 for 30 Days, TAB Prov:EMY BURNETT MD 04/07/21 Cranberry Extract (CRANBERRY) 250 Mg Capsule, 1 CAP PO BID PRN for BACK PAIN for 30 Days, #60 CAP 0 Refills Prov:EMY BURNETT MD 04/07/21 Echinacea (Echinacea) 380 Mg Capsule, 760 MG PO DAILY24, #60 CAPSULE Prov:EMY BURNETT MD 04/07/21 Ferrous Sulfate (IRON) 325 Mg Tablet, 1 TAB PO QD for 30 Days, #30 TAB 0 Refills Prov:EMY BURNETT MD 04/07/21 Outlook-3 Fatty Acids/Fish Oil (OMEGA 3 1,000 MG SOFTGEL) 1 Each Capsule, 2 CAP PO BID for 30 Days, #60 CAP 0 Refills WITH MEALS Prov:EMY BURNETT MD 04/07/21 Nitroglycerin (NITROGLYCERIN) 0.4 Mg Tab.subl, 1 TAB SL PRN for chest pain, #25 TAB 0 Refills 1st sign of attack; may repeat every 5 mins; if pain persists after 3 in 15 min, medical attention is recommended Prov:EYM BURNETT MD 04/07/21 Atorvastatin 20MG (LIPITOR 20MG) 20 Mg Tablet, 1 TAB PO DAILY, #90 TAB 3 Refills Prov:EMY BURNETT MD 04/07/21 Lorazepam (ATIVAN) 0.5 Mg Tablet, 0.5 MG PO DAILY24 for 30 Days, TAB Prov:EMY BURNTET MD 04/07/21 Allopurinol (ALLOPURINOL) 300 Mg Tablet, 1 TAB PO DAILY, #30 TAB 3 Refills Prov:EMY BURNETT MD 04/07/21 Famotidine (FAMOTIDINE) 40 Mg Tablet, 1 TAB PO DAILY, #30 TAB 3 Refills Prov:EMY BURNETT MD 04/07/21 Empagliflozin (Jardiance) 25 Mg Tablet, 25 MG PO AM, #30 TAB Prov:EMY BURNETT MD 04/07/21 Fluoxetine Hcl (FLUOXETINE HCL) 40 Mg Capsule, 1 CAP PO DAILY, #30 CAP 2 Refills Prov:EMY BURNETT MD 04/07/21 Meclizine Hcl (MECLIZINE HCL) 25 Mg Tablet, 1 TAB PO TID, #90 TAB Prov:EMY BURNETT MD 04/07/21 Metoprolol Succinate (METOPROLOL SUCCINATE) 50 Mg Tab.er.24h, 1 TAB PO DAILY, #90 TAB 3 Refills Prov:EMY BURNETT MD 04/07/21 Isosorbide Mononitrate (ISOSORBIDE MONONITRATE ER) 60 Mg Tab.er.24h, 2 TAB PO DAILY, #30 TAB 5 Refills Prov:EMY BURNETT MD 04/07/21 Lisinopril/Hydrochlorothiazide (LISINOPRIL-HCTZ 10-12.5 MG TAB) 1 Each Tablet, 1 TAB PO DAILY, #30 TAB 5 Refills Prov:EMY BURNETT MD 04/07/21 Aspirin (ASPIRIN) 81 Mg Tab.chew, 1 TAB PO DAILY, #30 TAB 3 Refills Prov:EMY BURNETT MD 04/07/21 Gabapentin (GABAPENTIN) 600 Mg Tablet, 1 TAB PO TID, #90 TAB 3 Refills Prov:EMY BURNETT MD 04/07/21 Reported Medications Gemfibrozil (GEMFIBROZIL) 600 Mg Tablet, 1 TAB PO BID, #60 TAB 5 Refills 03/15/16 Clopidogrel Bisulfate (PLAVIX) 75 Mg Tablet, 1 TAB PO DAILY, #90 TAB 1 Refill 03/10/16 Metformin Hcl (METFORMIN HCL) 1,000 Mg Tablet, 1 TAB PO BID, #60 TAB 5 Refills 12/27/15 Vital Signs First Vital Signs Date Time Temp Pulse Resp B/P (MAP) Pulse Ox O2 Delivery O2 Flow Rate FiO2 04/16/21 14:48 98.2 97 18 99 04/16/21 14:48 165/98 (120) Room Air Last Vital Signs Date Time Temp Pulse Resp B/P (MAP) Pulse Ox O2 Delivery O2 Flow Rate FiO2 04/16/21 15:49 98.2 83 18 152/74 (100) 93 Room Air Past Medical History Medical History: diabetes, GERD, heart attack, hypertension, other (Peptic Ulcer) Surgical History: cardiac cath, appendectomy, cholecystectomy, , hip, hysterectomy Social History Alcohol Use: none Drug Use: none Reviewed Nursing Reviewed: Vital Signs, Abn. Noted, Nursing Assessment Constitutional: no symptoms reported EENTM: no symptoms reported Respiratory: no symptoms reported Cardiovascular: no symptoms reported Gastrointestinal: abdominal pain; denies blood streaked bowels, denies diarrhea; nausea; denies vomiting Genitourinary: no symptoms reported Musculoskeletal: no symptoms reported Skin: no symptoms reported Psychiatric/Neurological: no symptoms reported Endocrine: no symptoms reported Hematologic/Lymphatic: no symptoms reported All Other Systems: Reviewed and Negative Physical Exam General Appearance: No Apparent Distress, WD/WN HEENT: PERRL/EOMI, Normal ENT Inspection, TMs Normal, Pharynx Normal Neck: Non-Tender, Full Range of Motion, Supple, Normal Inspection Respiratory: chest non-tender, lungs clear, normal breath sounds, no respiratory distress, no accessory muscle use Cardiovascular: Normal Peripheral Pulses, Regular Rate, Rhythm, No Edema, No Gallop, No JVD, No Murmur Gastrointestinal: Normal Bowel Sounds, Soft, Tenderness (Epigastric, and LLQ, no Rebound, No Guarding) Back: Normal Inspection, No CVA Tenderness, No Vertebral Tenderness Extremities: Normal Range of Motion, Non-Tender, Normal Inspection, No Pedal Edema, No Calf Tenderness, Normal Capillary Refill, Pelvis Stable Neurologic/Psychiatric: account review specialist II-XII NML as Tested, No Motor/Sensory Deficits, Alert, Normal Mood/Affect, Oriented x 3 Skin: Normal Color, Warm/Dry Lymphatic: No Adenopathy Results/Orders Results/Orders Orders - KAREN BYRNE DO Cbc With Auto Diff (04/16/21 15:02) Comprehensive Metabolic Panel (04/16/21 15:02) Amylase (04/16/21 15:02) Lipase (04/16/21 15:02) PT (04/16/21 15:02) Partial Thromboplastin Time. (04/16/21 15:02) Urinalysis (04/16/21 15:02) Magnesium Hydroxide (Milk Of Magnesia) (04/16/21 15:02) Lidocaine Hcl (Lidocaine Viscous) (04/16/21 15:02) Pantoprazole Sodium (Protonix Iv) (04/16/21 15:02) Ringer's Solution,Lactated (Lactated Rin (04/16/21 15:30) Creatine Kinase Mb (04/16/21 15:02) Creatine Kinase (04/16/21 15:02) Troponin I (04/16/21 15:02) Ekg-Routine (04/16/21 15:02) Pantoprazole Sodium (Protonix Iv) (04/16/21 15:10) Magnesium Hydroxide (Milk Of Magnesia) (04/16/21 15:10) Lidocaine Hcl (Lidocaine Viscous) (04/16/21 15:10) Magnesium Hydroxide (Milk Of Magnesia) (04/16/21 15:12) Urine Culture (04/16/21 15:15) Morphine Sulfate (Morphine Sulfate) (04/16/21 15:42) Ondansetron Hcl/Pf (Zofran) (04/16/21 16:00) Ondansetron Hcl/Pf (Zofran) (04/16/21 15:49) Morphine Sulfate (Morphine Sulfate) (04/16/21 15:50) Vital Signs Date Time Temp Pulse Resp B/P (MAP) Pulse Ox O2 Delivery O2 Flow Rate FiO2 04/16/21 15:49 98.2 83 18 152/74 (100) 93 Room Air 04/16/21 14:48 98.2 97 18 165/98 (120) 99 Room Air 04/16/21 14:48 98.2 97 18 04/16/21 14:48 98.2 97 18 99 Administered Medications Medications (Trade) Dose Ordered Sig/Tete Route PRN Reason Start Time Stop Time Status Last Admin Dose Admin Lidocaine HCl (Lidocaine Viscous) 5 ml STAT STAT MM 04/16/21 15:02 04/16/21 15:06 DC 04/16/21 15:16 5 ML Magnesium Hydroxide (Milk Of Magnesia) 10 ml STAT STAT PO 04/16/21 15:02 04/16/21 15:06 DC 04/16/21 15:16 10 ML Morphine Sulfate (Morphine Sulfate) 4 mg STAT STAT IV 04/16/21 15:42 04/16/21 15:43 DC 04/16/21 15:53 4 MG Ondansetron HCl (Zofran) 4 mg OT PRN IV NAUSEA / VOMITING 04/16/21 16:00 05/16/21 15:59 04/16/21 15:53 4 MG Pantoprazole Sodium (Protonix Iv) 40 mg STAT STAT IV 04/16/21 15:02 04/16/21 15:06 DC 04/16/21 15:16 40 MG Laboratory Tests Test 04/16/21 14:38 04/16/21 15:15 Urine Collection Type UNKNOWN Urine Color YELLOW Urine Appearance CLEAR Urine Bilirubin NEGATIVE (NEGATIVE) Urine Ketones NEGATIVE (NEGATIVE) Urine Specific [place] 1.025 (1.005-1.030) Urine pH 6.0 (4.5-8.0) Urine Protein TRACE (NEGATIVE) H Urine Urobilinogen 0.2 E.U./dL (0.2) Urine Nitrate NEGATIVE (NEGATIVE) Urine Leukocyte Esterase SMALL (NEGATIVE) H Urine Glucose (Auto)(UA) NEGATIVE (NEGATIVE) Urine Blood NEGATIVE (NEGATIVE) Urine RBC 0-2 RBC/HPF (NONE SEEN) Urine WBC 2-5 WBC/HPF (0-2) Urine Squamous Epithelial Cells FEW #/HPF (FEW) Urine Bacteria RARE (NONE SEEN) Urine Other MUCOUS 1+ #/HPF White Blood Count 8.2 10^3/uL (4.5-11.0) Red Blood Count 3.66 10^6/uL (4.00-5.20) L Hemoglobin 11.1 g/dL (12.0-15.0) L Hematocrit 35.5 % (36.0-46.0) L Mean Corpuscular Volume 97.0 fL (78-100) Mean Corpuscular Hemoglobin 30.3 pg (26-34) Mean Corpuscular Hemoglobin Concent 31.3 g/dL (33-36.5) L Red Cell Distribution Width 15.2 % (11.5-14.5) H Platelet Count 323 10^3/uL (150-400) Mean Platelet Volume 8.1 fL (7.8-11.0) Neutrophils (%) (Auto) 66.7 % (41.0-85.0) Lymphocytes (%) (Auto) 20.2 % (24.0-44.0) L Monocytes (%) (Auto) 9.9 % (5.0-12.0) Neutrophils # (Auto) 5.4 10^3/uL (1.8-7.7) Lymphocytes # (Auto) 1.65 10^3/uL1 (1.0-4.8) Monocytes # (Auto) 0.8 10^3/uL (0.3-0.8) Absolute Immature Granulocyte (auto 0.02 10^3 u/L (0-2) Absolute Eosinophils (auto) 0.2 10^3/uL (0.0-0.2) Immature Granulocytes % 0.20 % (0.00-0.50) Eosinophils % 2.3 % (0.0-5.0) Basophils % 0.7 % (0.0-0.2) H Basophils # 0.1 10^3/uL (0.0-0.1) Prothrombin Time 11.9 SEC (9.6-12.0) Prothrombin Time INR (Non-Therap) 1.1 Activated Partial Thromboplast Time 22.7 SEC (24.67-30.72) Sodium Level 141 mmol/L (132-145) Potassium Level 3.4 mmol/L (3.6-5.2) L Chloride Level 105.0 mmol/L (96-109) Carbon Dioxide Level 22.7 mmol/L (20.0-32) Anion Gap 16.7 Blood Urea Nitrogen 5 mg/dL (7-18) L Creatinine 0.64 mg/dL (0.59-1.40) Estimated GFR () 111.3 (>/=60) Est GFR (CKD-EPI)(Non-Afr Russian) 92.0 (>/=60) BUN/Creatinine Ratio 7.0 Glucose Level 103 mg/dL (70-110) Calcium Level 9.1 mg/dL (8.4-10.5) Total Bilirubin 0.2 mg/dL (0.2-1.0) Aspartate Amino Transferase (AST) 17 U/L (0-35) Alanine Aminotransferase (ALT) 25 U/L (12-78) Alkaline Phosphatase 44 U/L (50-136) L Total Creatine Kinase 34 U/L (26-192) Creatine Kinase MB 0.5 ng/mL (0.5-3.6) Troponin I < 0.02 ng/mL (0.00-0.05) Total Protein 7.2 g/dL (6.4-8.2) Albumin 3.4 g/dL (3.4-5.0) Globulin 3.8 Albumin/Globulin Ratio 0.894 Amylase Level 31 U/L (25-115) Lipase 247 U/L (114-286) Progress Progress Patient feeling better EKG/XRAY/CT/US EKG: NSR ER DEPART Departure Time of Disposition: 16:34 Disposition: 01 HOME / SELF CARE / HOMELESS Impression: Primary Impression: Gastritis Condition: Stable Patient Instructions: Gastritis, Adult Referrals: DAYAMI ARANDA PAVER OPERATOR (PCP) PRIMARY CARE PROVIDER Duration or Time Spent with Pa: 45 Problem Qualifiers Primary Impression: Gastritis Gastritis type: unspecified gastritis Chronicity: acute Gastritis bleeding: without bleeding Qualified Codes: K29.00 - Acute gastritis without bleeding KAREN BYRNE DO Apr 16, 2021 15:12
[2021-04-16] MEDS: LACTATED RINGERS 1,000 ML IV SCH ×2 (15:16→16:21)
[2021-04-16 15:20] LABS: BASOPHIL # 0.1 10^3/uL (0.0-0.1); BASOPHIL % 0.7 % (0.0-0.2); EOSINOPHIL # 0.2 10^3/uL (0.0-0.2); EOSINOPHIL % 2.3 % (0.0-5.0); LYMPHOCYTES # 1.65 10^3/uL1 (1.0-4.8); LYMPHOCYTES % 20.2 % (24.0-44.0); MEAN CORP HGB 30.3 pg (26-34); MONOCYTES # 0.8 10^3/uL (0.3-0.8); MONOCYTES % 9.9 % (5.0-12.0); NEUTROPHIL # 5.4 10^3/uL (1.8-7.7); NEUTROPHILS % 66.7 % (41.0-85.0); PLATELET COUNT 323 10^3/uL (150-400); RED CELL DISTRIBUTION WIDTH 15.2 % (11.5-14.5)
--- NOTE | 2021-04-16 15:26 | PCM.EKG ---
[facility] Test Date: 2021-04-16 Test Time: 15:25:03 Pat Name: ESTELLA MARRERO Department: Room: Gender: F Centrifugal Machine Tender: JEAN : 1950 Requested By: VICENTE BYRNE Order Number: [id number] Reading MD: Vicente Byrne Measurements Intervals [place] Rate: 83 P: -24 MI: 162 QRS: -34 QRSD: 88 T: 8 QT: 417 QTc: 490 Interpretive Statements Sinus rhythm Inferior infarct, old Compared to ECG 04/07/2021 05:35:29 Sinus tachycardia no longer present Prolonged QT interval no longer present Myocardial infarct finding still present Electronically Signed On 04-16-2021 18:44:55 CDT by Vicente Byrne Please click the below link to view image of tracing.
[2021-04-16 15:31] LABS: BILIRUBIN,URINE NEGATIVE (NEGATIVE); UA COLOR YELLOW; UROBILINOGEN,URINE 0.2 E.U./dL (0.2)
[2021-04-16] MEDS ORDERED: MORPHINE SULFATE IV STA (15:42)
[2021-04-16 15:49] VITALS: BP 152/74
[2021-04-16] MEDS ORDERED: ZOFRAN ONE (15:49)
[2021-04-16] MEDS ORDERED: MORPHINE SULFATE ONE (15:50)
[2021-04-16 15:53] LABS: ALANINE AMINOTRANSFERASE(ML) 25 U/L (12-78); ALKALINE PHOSPHATASE 44 U/L (50-136); ASPARTATE AMINO TRANSFERASE 17 U/L (0-35); CALCIUM 9.1 mg/dL (8.4-10.5); CARBON DIOXIDE 22.7 mmol/L (20.0-32); GLUCOSE 103 mg/dL (70-110)
[2021-04-16] MEDS ORDERED: ZOFRAN IV PRN (16:00)
== END 2021-04-16 16:52 | disposition home or self-care (01) ==
LOC: ER 14:31
DX: K29.00 Acute gastritis without bleeding (principal); K21.9 Gastro-esophageal reflux disease without esophagitis; I25.2 Old myocardial infarction; I10 Essential (primary) hypertension; E11.9 Type 2 diabetes mellitus without complications; Z79.82 Long term (current) use of aspirin; Z79.84 Long term (current) use of oral hypoglycemic drugs; Z79.899 Other long term (current) drug therapy; Z87.11 Personal history of peptic ulcer disease; Z90.49 Acquired absence of other specified parts of digestive tract; Z90.710 Acquired absence of both cervix and uterus
CPT/HCPCS: 36415; 80053; 81001; 82150; 82550; 82553; 83690; 84484; 85025; 85610; 85730; 87086; 93005; 96361; 96374; 96375; 99284; C9113; J2270; J2405; J3490 ×3; J7120

== ENCOUNTER → 2022-04-24 | Outpatient (CLI) | payer MEDICARE, MEDICAID ==
[~2022-04-24] MED LIST changes: -LISI1TAB20 PO; -LISI1TAB23 PO; +LISI1TAB37 PO; +LISI1TAB41 PO
== END | disposition home or self-care (01) ==
LOC: NPLAB 13:02
PROVIDERS: ATTEND Nurse Practitioner Family
DX: R30.0 Dysuria (principal)
CPT/HCPCS: 87086

== ENCOUNTER 2022-06-30 13:42 | Emergency (ER) | payer MEDICARE, MEDICAID ==
[~2022-06-30] VITALS: Ht 160 cm; Wt 72.6 kg
[~2022-06-30 13:42] MED LIST changes: +CLOP-28 PO; -CLOP75TA52 PO; -NYST15CR TP; +NYST15CR31 TP
--- NOTE | 2022-06-30 13:48 | NUR ---
ARRIVAL PT ARRIVED VIA EMS TO ED 3 WITH C/O CHEST PAIN RADIATING TO THE BACK AROUND 2 HOURS AGO. EMS INITIATED IV AND GAVE 3 NITRO, ASPIRIN, AND MORPHINE. PT HAS A HISTORY OF CARIAC STENTS. PT AMBULATED TO BED FROM [facility]. VITALS, EKG, LABS DONE AND DR CASTELLANOS.
[2022-06-30 14:07] VITALS: BP 163/88
--- NOTE | 2022-06-30 14:13 | ER.PDOC ---
General Chief Complaint: Chest Pain-Cardiac Nature Stated Complaint: CHEST PAIN Time seen by MD: 14:11 Source: patient Exam Limitations: no limitations History of Present Illness Initial Comments Chest pain this afternoon. Timing/Duration: 1-3 hours Severity/Quality: moderate Radiation: neck Activities at Onset: none Nitro Today/Relief: 0.4 mg x 3, Provided By EMS Aspirin Today: 81 mg x 4, Provided By EMS Associated Symptoms: shortness of breath Allergies: Coded Allergies: propoxyphene (Verified Allergy, Severe, SWELLING, 12/27/15) Home Meds Active Scripts Pantoprazole Sodium (PROTONIX) 40 Mg Tablet.dr, 40 MG PO BID for 14 Days Prov:ISABELLA JONES MD 04/08/21 Ascorbic Acid (VITAMIN C) 500 Mg Capsule.er, 1 CAP PO QD for 30 Days, #30 CAP 0 Refills Prov:EMY BURNETT MD 04/07/21 Vitamin E Mixed (VITAMIN E) 1,000 Unit Capsule, 1000 UNIT PO DAILY24, #30 CAPSULE Prov:EMY BURNETT MD 04/07/21 Chromium Picolinate (CHROMIUM PICOLINATE) 1,000 Mcg Tablet, 1000 MCG PO DAILY24 for 30 Days, TAB Prov:EMY BURNETT MD 04/07/21 Cranberry Extract (CRANBERRY) 250 Mg Capsule, 1 CAP PO BID PRN for BACK PAIN for 30 Days, #60 CAP 0 Refills Prov:EMY BURNETT MD 04/07/21 Echinacea (Echinacea) 380 Mg Capsule, 760 MG PO DAILY24, #60 CAPSULE Prov:EMY BURNETT MD 04/07/21 Ferrous Sulfate (IRON) 325 Mg Tablet, 1 TAB PO QD for 30 Days, #30 TAB 0 Refills Prov:EMY BURNETT MD 04/07/21 Alna-3 Fatty Acids/Fish Oil (OMEGA 3 1,000 MG SOFTGEL) 1 Each Capsule, 2 CAP PO BID for 30 Days, #60 CAP 0 Refills WITH MEALS Prov:EMY BURNETT MD 04/07/21 Nitroglycerin (NITROGLYCERIN) 0.4 Mg Tab.subl, 1 TAB SL PRN for chest pain, #25 TAB 0 Refills 1st sign of attack; may repeat every 5 mins; if pain persists after 3 in 15 min, medical attention is recommended Prov:EMY BURNETT MD 04/07/21 Atorvastatin 20MG (LIPITOR 20MG) 20 Mg Tablet, 1 TAB PO DAILY, #90 TAB 3 Refills Prov:EMY BURNETT MD 04/07/21 Lorazepam (ATIVAN) 0.5 Mg Tablet, 0.5 MG PO DAILY24 for 30 Days, TAB Prov:EMY BURNETT MD 04/07/21 Allopurinol (ALLOPURINOL) 300 Mg Tablet, 1 TAB PO DAILY, #30 TAB 3 Refills Prov:EMY BURNETT MD 04/07/21 Famotidine (FAMOTIDINE) 40 Mg Tablet, 1 TAB PO DAILY, #30 TAB 3 Refills Prov:EMY BURNETT MD 04/07/21 Empagliflozin (Jardiance) 25 Mg Tablet, 25 MG PO AM, #30 TAB Prov:EMY BURNETT MD 04/07/21 Fluoxetine Hcl (FLUOXETINE HCL) 40 Mg Capsule, 1 CAP PO DAILY, #30 CAP 2 Refills Prov:EMY BURNETT MD 04/07/21 Meclizine Hcl (MECLIZINE HCL) 25 Mg Tablet, 1 TAB PO TID, #90 TAB Prov:EMY BURNETT MD 04/07/21 Metoprolol Succinate (METOPROLOL SUCCINATE) 50 Mg Tab.er.24h, 1 TAB PO DAILY, #90 TAB 3 Refills Prov:EMY BURNETT MD 04/07/21 Isosorbide Mononitrate (ISOSORBIDE MONONITRATE ER) 60 Mg Tab.er.24h, 2 TAB PO DAILY, #30 TAB 5 Refills Prov:EMY BURNETT MD 04/07/21 Lisinopril/Hydrochlorothiazide (LISINOPRIL-HCTZ 10-12.5 MG TAB) 1 Each Tablet, 1 TAB PO DAILY, #30 TAB 5 Refills Prov:EMY BURNETT MD 04/07/21 Aspirin (ASPIRIN) 81 Mg Tab.chew, 1 TAB PO DAILY, #30 TAB 3 Refills Prov:EMY BURNETT MD 04/07/21 Gabapentin (GABAPENTIN) 600 Mg Tablet, 1 TAB PO TID, #90 TAB 3 Refills Prov:EMY BURNETT MD 04/07/21 Reported Medications Cyclobenzaprine Hcl (FLEXERIL) 10 Mg Tablet, 1 TAB PO Q8HR, #90 TAB 06/30/22 Gemfibrozil (GEMFIBROZIL) 600 Mg Tablet, 1 TAB PO BID, #60 TAB 5 Refills 03/15/16 Clopidogrel Bisulfate (PLAVIX) 75 Mg Tablet, 1 TAB PO DAILY, #90 TAB 1 Refill 03/10/16 Metformin Hcl (METFORMIN HCL) 1,000 Mg Tablet, 1 TAB PO BID, #60 TAB 5 Refills 12/27/15 Past Medical History Medical History: diabetes, GERD, high cholesterol, hypertension Surgical History: cardiac cath, hip, stent Social History Alcohol Use: none Drug Use: none Constitutional: no symptoms reported EENTM: no symptoms reported Respiratory: see HPI Cardiovascular: see HPI Gastrointestinal: no symptoms reported All Other Systems: Reviewed and Negative Physical Exam General Appearance: No Apparent Distress, WD/WN HEENT: PERRL/EOMI, Normal ENT Inspection, TMs Normal, Pharynx Normal Neck: Non-Tender, Full Range of Motion, Supple, Normal Inspection Respiratory: chest non-tender, lungs clear, normal breath sounds, no respiratory distress, no accessory muscle use Cardiovascular: Normal Peripheral Pulses, Regular Rate, Rhythm, No Edema, No Gallop, No JVD, No Murmur Gastrointestinal: Normal Bowel Sounds, No Organomegaly, No Pulsatile Mass, Non Tender, Soft Extremities: Normal Range of Motion, Non-Tender, Normal Inspection, No Pedal Edema, No Calf Tenderness, Normal Capillary Refill Neurologic/Psychiatric: craft center director II-XII NML as Tested, No Motor/Sensory Deficits, Alert, Normal Mood/Affect, Oriented x 3 Skin: Normal Color, Warm/Dry Lymphatic: No Adenopathy Results/Orders Results/Orders Orders - KAL WHITTINGTON MD Cbc With Auto Diff (06/30/22 13:59) Comprehensive Metabolic Panel (06/30/22 13:59) Creatine Kinase (06/30/22 13:59) Creatine Kinase Mb (06/30/22 13:59) Probnp B-Type Geospatial Engineer (06/30/22 13:59) PT (06/30/22 13:59) Partial Thromboplastin Time. (06/30/22 13:59) D-Dimer (06/30/22 13:59) Xr Chest 1v (06/30/22 13:59) Ekg-Routine (06/30/22 13:59) Troponin I High Sensitivity (06/30/22 13:59) Fentanyl Citrate/Pf (Sublimaze) (06/30/22 14:40) Fentanyl Citrate/Pf (Sublimaze) (06/30/22 14:58) Nitroglycerin (Nitro-Dur 0.1mg Patch) (06/30/22 14:58) Enoxaparin Sodium (Lovenox) (06/30/22 14:58) 0.9 % Sodium Chloride (Ns 1000ml) (06/30/22 14:58) Vital Signs Date Time Temp Pulse Resp B/P (MAP) Pulse Ox O2 Delivery O2 Flow Rate FiO2 06/30/22 14:07 98.0 81 18 95 06/30/22 14:07 98.0 81 18 06/30/22 14:07 98.0 81 18 163/88 (113) 95 Room Air* 0 21 Laboratory Tests Test 06/30/22 14:08 White Blood Count 6.5 10^3/uL (4.5-11.0) Red Blood Count 4.48 10^6/uL (4.00-5.20) Hemoglobin 13.7 g/dL (12.0-15.0) Hematocrit 43.1 % (36.0-46.0) Mean Corpuscular Volume 96.2 fL (78-100) Mean Corpuscular Hemoglobin 30.6 pg (26-34) Mean Corpuscular Hemoglobin Concent 31.8 g/dL (33-36.5) L Red Cell Distribution Width 13.4 % (11.5-14.5) Platelet Count 220 10^3/uL (150-400) Mean Platelet Volume 9.2 fL (7.8-11.0) Neutrophils (%) (Auto) 54.8 % (41.0-85.0) Lymphocytes (%) (Auto) 30.8 % (24.0-44.0) Monocytes (%) (Auto) 11.8 % (5.0-12.0) Neutrophils # (Auto) 3.6 10^3/uL (1.8-7.7) Lymphocytes # (Auto) 2.01 10^3/uL1 (1.0-4.8) Monocytes # (Auto) 0.8 10^3/uL (0.3-0.8) Absolute Immature Granulocyte (auto 0.04 10^3 u/L (0-2) Absolute Eosinophils (auto) 0.1 10^3/uL (0.0-0.2) Immature Granulocytes % 0.60 % (0.00-0.50) H Eosinophils % 1.5 % (0.0-5.0) Basophils % 0.5 % (0.0-0.2) H Basophils # 0.0 10^3/uL (0.0-0.1) Prothrombin Time 10.3 SEC (9.1-11.5) Prothrombin Time INR (Non-Therap) 1.0 Activated Partial Thromboplast Time 23.2 SEC (22.5-33.1) D-Dimer 0.23 mg/L (0.19-0.49) Sodium Level 139 mmol/L (132-145) Potassium Level 3.9 mmol/L (3.6-5.2) Chloride Level 107.0 mmol/L (96-109) Carbon Dioxide Level 23.8 mmol/L (20.0-32) Anion Gap 12.1 Blood Urea Nitrogen 8 mg/dL (7-18) Creatinine 0.65 mg/dL (0.59-1.40) Estimated GFR () 109.0 (>/=60) Est GFR (CKD-EPI)(Non-Afr French) 90.1 (>/=60) BUN/Creatinine Ratio 12.0 Glucose Level 114 mg/dL (70-110) H Calcium Level 8.8 mg/dL (8.4-10.5) Total Bilirubin 0.3 mg/dL (0.2-1.0) Aspartate Amino Transferase (AST) 21 U/L (0-35) Alanine Aminotransferase (ALT) 25 U/L (12-78) Alkaline Phosphatase 53 U/L (50-136) Total Creatine Kinase 56 U/L (26-192) Creatine Kinase MB 0.7 ng/mL (0.5-3.6) Troponin I High Sensitivity 5 ng/L (0-50) Pro-B-Type Natriuretic Peptide 175 pg/mL (0-125) H Total Protein 7.1 g/dL (6.4-8.2) Albumin 3.6 g/dL (3.4-5.0) Globulin 3.5 Albumin/Globulin Ratio 1.028 Progress Progress Spoke with Dr. Fraser who is patient's service unit operator and he told me to transfer patient to [facility] ED. EKG/XRAY/CT/US EKG: NSR EKG Comments: HR 77, normal P axis ER DEPART Departure Time of Disposition: 15:09 Disposition: 02 SHORT TERM HOSPITAL Impression: Primary Impression: Chest pain Additional Impression: Unstable angina Condition: Improved Referrals: DAYAMI ARANDA MOLD FORMS BUILDER (PCP) PRIMARY CARE PROVIDER Comments Transfer to [facility] ED for Dr. Disla Duration or Time Spent with Pa: 60 min Problem Qualifiers Primary Impression: Chest pain Chest pain type: unspecified Qualified Codes: R07.9 - Chest pain, unspecified KAL WHITTINGTON MD Jun 30, 2022 14:12
--- NOTE | 2022-06-30 14:14 | PCM.EKG ---
[facility] Test Date: 2022-06-30 Test Time: 13:53:58 Pat Name: ESTELLA MARRERO Department: Room: Gender: F Animal Rescuer: RUTH : 1950 Requested By: KAL WHITTINGTON Order Number: [id number] Reading MD: Kal WHITTINGTON Measurements Intervals Marquez Rate: 77 P: 13 MA: 171 QRS: -34 QRSD: 88 T: 7 QT: 368 QTc: 417 Interpretive Statements Sinus rhythm Inferior infarct, old Consider anterior infarct Compared to ECG 04/16/2021 15:25:03 No significant changes Electronically Signed On 07-01-2022 0:11:41 CDT by Kal WHITTINGTON Please click the below link to view image of tracing.
[2022-06-30 14:17] LABS: BASOPHIL % 0.5 % (0.0-0.2); EOSINOPHIL # 0.1 10^3/uL (0.0-0.2); EOSINOPHIL % 1.5 % (0.0-5.0); LYMPHOCYTES # 2.01 10^3/uL1 (1.0-4.8); LYMPHOCYTES % 30.8 % (24.0-44.0); MEAN CORP HGB 30.6 pg (26-34); MONOCYTES # 0.8 10^3/uL (0.3-0.8); MONOCYTES % 11.8 % (5.0-12.0); NEUTROPHIL # 3.6 10^3/uL (1.8-7.7); NEUTROPHILS % 54.8 % (41.0-85.0); PLATELET COUNT 220 10^3/uL (150-400); RED CELL DISTRIBUTION WIDTH 13.4 % (11.5-14.5)
--- NOTE | 2022-06-30 14:18 | DIREP ---
PROCEDURE:CHEST 1 VIEW COMPARISON:[facility], CR, XRAY CHEST SINGLE VW, 04/29/2019, 03:41 PM. INDICATIONS:Chest pain FINDINGS: LUNGS/PLEURA:No significant pulmonary parenchymal abnormalities. No effusions. VASCULATURE:Normal. Unremarkable pulmonary vasculature. CARDIAC:Normal. No cardiac silhouette abnormality or cardiomegaly. MEDIASTINUM:Normal. No visible mass or adenopathy. BONES:Normal. No fracture or visible bony lesion. OTHER:Negative. CONCLUSION:No acute cardiopulmonary findings. Dictated by: Gamaliel Russell M.D. on 06/30/2022 at 02:16 PM
[2022-06-30] MEDS ORDERED: CYCL10TA19 PO (14:21)
[2022-06-30 14:40] LABS: CARBON DIOXIDE 23.8 mmol/L (20.0-32)
[2022-06-30] MEDS ORDERED: SUBLIMAZE ONE (14:40)
--- NOTE | 2022-06-30 14:56 | NUR ---
BARTOLOME BOWDEN ON THE PHONE WITH BARTOLOME
[2022-06-30] MEDS ORDERED: NS 1000ML 1,000 ML IV STA (14:58)
[2022-06-30] MEDS ORDERED: LOVENOX SQ STA (14:58)
[2022-06-30] MEDS ORDERED: SUBLIMAZE IV STA (14:58)
[2022-06-30] MEDS ORDERED: NITROGLYCERIN 0.1 MG TD STA (14:58)
--- NOTE | 2022-06-30 15:06 | NUR ---
BSA DR BOWDEN ON THE PHONE WITH BSA
--- NOTE | 2022-06-30 15:09 | NUR ---
[facility] ACCEPTED WITH DR GALEAS. AOD IS VIVIAN THAO RN.
[2022-06-30] MEDS ORDERED: NS 1000ML 1,000 ML ONE (15:18)
[2022-06-30] MEDS ORDERED: LOVENOX SQ ONE (15:18)
[2022-06-30] MEDS ORDERED: NITRO-DUR 0.2MG PATCH TD STA (15:18)
[2022-06-30] MEDS ORDERED: NITRO-DUR 0.2MG PATCH TD ONE (15:18)
[2022-06-30 15:35] VITALS: BP 156/99
== END 2022-06-30 15:55 | disposition short-term general hospital (02) ==
LOC: ER 13:42 → EDUNIT# 13:42 → EDBD 13:42 → ER 15:55
DX: R07.9 Chest pain, unspecified (principal); E11.9 Type 2 diabetes mellitus without complications; E78.00 Pure hypercholesterolemia, unspecified; I10 Essential (primary) hypertension; I20.0 Unstable angina; K21.9 Gastro-esophageal reflux disease without esophagitis
CPT/HCPCS: 99285; 96374; 71045; 80053; 85025; 36415; 85379; 84484; 82553; 83880; 82550; 85610; 85730; 93005; 96372; J7030; J1650; J3010

== ENCOUNTER → 2022-07-11 | Outpatient (CLI) | payer MEDICARE, MEDICAID ==
[~2022-07-11] MED LIST changes: +CYCL10TA19 PO
--- NOTE | 2022-07-11 12:32 | DIREP ---
PROCEDURE:US DOPPLER CAROTID BILATERAL COMPARISON:None. INDICATIONS:R42 DIZZINESS AND GIDDINESS TECHNIQUE:Sonographic evaluation of carotid arteries was performed together with grayscale, color-flow, and spectral analysis. FINDINGS: PEAK FLOW VELOCITIES (cm/sec) RIGHT CCA: PROX:114.6 cm/s MID:83.4 cm/s DIST:68.6 cm/s RIGHT ICA: PROX:50.7 cm/s MID:61.6 cm/s DIST:73.8 cm/s RIGHT ECA:99.6 cm/s RIGHT ICA/CCA:1.08 RIGHT VERTEBRAL:37.6 cm/s; Antegrade IMAGES:There is mild plaque at the carotid bifurcation. LEFT CCA: PROX:115.9 cm/s MID:74.7 cm/s DIST:85.1 cm/s LEFT ICA: PROX:74.7 cm/s MID:86.4 cm/s DIST:90.8 cm/s LEFT ECA:100.7 cm/s LEFT ICA/CCA:1.07 LEFT VERTEBRAL:59.5 cm/s; Antegrade IMAGES:There is mild plaque at the carotid bifurcation. OTHER: Lymph nodes are incidentally noted within the bilateral neck. Enlarged right neck lymph node with fatty padmini measures 1.7 x 0.8 x 1.0 cm (at bifurcation). Left neck lymph node with fatty padmini measures 0.9 x 0.3 x 0.7 cm (at bulb). An almost completely cystic nodule is incidentally noted within the mid-lower left thyroid lobe measuring approximately 2.5 x 1.3 x 1.7 cm. CONCLUSION: 1. Normal velocities in the carotid vessels with no significant stenosis. 2. Bilateral benign-appearing lymph nodes. 3. Cystic lesion in the left lobe of the thyroid gland Diameter Stenosis (%)ICA Peak Systolic Velocity (cm/s)ICA/CCA RatioNormal<125<2.0<50<125<[id number]>2-470 to near occlusion>230>4J Ultrasound Med 2005; [id number] Dictated by: LADY Physician on 07/11/2022 at 12:12 PM ac
== END | disposition home or self-care (01) ==
LOC: RAD 09:06
PROVIDERS: ATTEND Nurse Practitioner Family
DX: I65.23 Occlusion and stenosis of bilateral carotid arteries (principal); E07.89 Other specified disorders of thyroid; R42 Dizziness and giddiness
CPT/HCPCS: 93880

== ENCOUNTER 2022-07-27 17:30 | Emergency (ER) | payer MEDICAID, MEDICARE ==
[~2022-07-27] VITALS: Ht 160 cm; Wt 72.6 kg
--- NOTE | 2022-07-27 17:54 | NUR ---
ARRIVAL PT ARRIVED AMBULATORY TO ED 3 WITH C/O BODY ACHES, AND VOMITING SINCE LAST FRIDAY. VITALS TAKEN AND DR NOTIFIED.
[2022-07-27 18:00] VITALS: BP_SYST 158; BP_DIAS 84; BP_DIAS 87
[2022-07-27] MEDS ORDERED: ZOFRAN ONE (18:28)
[2022-07-27] MEDS ORDERED: NS 1000ML 1,000 ML ONE (18:28)
[2022-07-27] MEDS ORDERED: ZOFRAN IV STA (18:37)
[2022-07-27] MEDS ORDERED: NS 1000ML 1,000 ML IV STA (18:37)
--- NOTE | 2022-07-27 18:43 | ER.PDOC ---
General Chief Complaint: Nausea,Vomiting,Diarrhea Stated Complaint: WEAKNESS,BODYACHE,N/V Time seen by MD: 18:39 Source: patient Exam Limitations: no limitations History of Present Illness Initial Comments Nausea, vomiting, weakness and generalized body aches for 1 week. Patient also complains of bloody discharge from the left ear for the last few days. No fever or chills. No abdominal pain or diarrhea. Severity/Quality: moderate Associated Symptoms (vomiting): freq vomitng Allergies: Coded Allergies: propoxyphene (Verified Allergy, Severe, SWELLING, 12/27/15) Home Meds Active Scripts Pantoprazole Sodium (PROTONIX) 40 Mg Tablet.dr, 40 MG PO BID for 14 Days Prov:ISABELLA JONES MD 04/08/21 Ascorbic Acid (VITAMIN C) 500 Mg Capsule.er, 1 CAP PO QD for 30 Days, #30 CAP 0 Refills Prov:EMY BURNETT MD 04/07/21 Vitamin E Mixed (VITAMIN E) 1,000 Unit Capsule, 1000 UNIT PO DAILY24, #30 CAPSULE Prov:EMY BURNETT MD 04/07/21 Chromium Picolinate (CHROMIUM PICOLINATE) 1,000 Mcg Tablet, 1000 MCG PO DAILY24 for 30 Days, TAB Prov:EMY BURNETT MD 04/07/21 Cranberry Extract (CRANBERRY) 250 Mg Capsule, 1 CAP PO BID PRN for BACK PAIN for 30 Days, #60 CAP 0 Refills Prov:EMY BURNETT MD 04/07/21 Echinacea (Echinacea) 380 Mg Capsule, 760 MG PO DAILY24, #60 CAPSULE Prov:EMY BURNETT MD 04/07/21 Ferrous Sulfate (IRON) 325 Mg Tablet, 1 TAB PO QD for 30 Days, #30 TAB 0 Refills Prov:EMY BURNETT MD 04/07/21 [employer] Fatty Acids/Fish Oil (OMEGA 3 1,000 MG SOFTGEL) 1 Each Capsule, 2 CAP PO BID for 30 Days, #60 CAP 0 Refills WITH MEALS Prov:EMY BURNETT MD 04/07/21 Nitroglycerin (NITROGLYCERIN) 0.4 Mg Tab.subl, 1 TAB SL PRN for chest pain, #25 TAB 0 Refills 1st sign of attack; may repeat every 5 mins; if pain persists after 3 in 15 min, medical attention is recommended Prov:EMY BURNETT MD 04/07/21 Atorvastatin 20MG (LIPITOR 20MG) 20 Mg Tablet, 1 TAB PO DAILY, #90 TAB 3 Refills Prov:EMY BURNETT MD 04/07/21 Lorazepam (ATIVAN) 0.5 Mg Tablet, 0.5 MG PO DAILY24 for 30 Days, TAB Prov:EMY BURNETT MD 04/07/21 Allopurinol (ALLOPURINOL) 300 Mg Tablet, 1 TAB PO DAILY, #30 TAB 3 Refills Prov:EMY BURNETT MD 04/07/21 Famotidine (FAMOTIDINE) 40 Mg Tablet, 1 TAB PO DAILY, #30 TAB 3 Refills Prov:EMY BURNETT MD 04/07/21 Empagliflozin (Jardiance) 25 Mg Tablet, 25 MG PO AM, #30 TAB Prov:EMY BURNETT MD 04/07/21 Fluoxetine Hcl (FLUOXETINE HCL) 40 Mg Capsule, 1 CAP PO DAILY, #30 CAP 2 Refills Prov:EMY BURNETT MD 04/07/21 Meclizine Hcl (MECLIZINE HCL) 25 Mg Tablet, 1 TAB PO TID, #90 TAB Prov:EMY BURNETT MD 04/07/21 Metoprolol Succinate (METOPROLOL SUCCINATE) 50 Mg Tab.er.24h, 1 TAB PO DAILY, #90 TAB 3 Refills Prov:EMY BURNETT MD 04/07/21 Isosorbide Mononitrate (ISOSORBIDE MONONITRATE ER) 60 Mg Tab.er.24h, 2 TAB PO DAILY, #30 TAB 5 Refills Prov:EMY BURNETT MD 04/07/21 Lisinopril/Hydrochlorothiazide (LISINOPRIL-HCTZ 10-12.5 MG TAB) 1 Each Tablet, 1 TAB PO DAILY, #30 TAB 5 Refills Prov:EMY BURNETT MD 04/07/21 Aspirin (ASPIRIN) 81 Mg Tab.chew, 1 TAB PO DAILY, #30 TAB 3 Refills Prov:EMY BURNETT MD 04/07/21 Gabapentin (GABAPENTIN) 600 Mg Tablet, 1 TAB PO TID, #90 TAB 3 Refills Prov:EMY BURNETT MD 04/07/21 Reported Medications Cyclobenzaprine Hcl (FLEXERIL) 10 Mg Tablet, 1 TAB PO Q8HR, #90 TAB 06/30/22 Gemfibrozil (GEMFIBROZIL) 600 Mg Tablet, 1 TAB PO BID, #60 TAB 5 Refills 03/15/16 Clopidogrel Bisulfate (PLAVIX) 75 Mg Tablet, 1 TAB PO DAILY, #90 TAB 1 Refill 03/10/16 Metformin Hcl (METFORMIN HCL) 1,000 Mg Tablet, 1 TAB PO BID, #60 TAB 5 Refills 12/27/15 Vital Signs First Vital Signs Date Time Temp Pulse Resp B/P (MAP) Pulse Ox O2 Delivery O2 Flow Rate FiO2 07/27/22 18:00 98.1 92 18 07/27/22 18:00 95 07/27/22 18:00 158/84 (108) Room Air* 0 21 Last Vital Signs Date Time Temp Pulse Resp B/P (MAP) Pulse Ox O2 Delivery O2 Flow Rate FiO2 07/27/22 18:00 98.1 92 18 158/84 (108) 95 Room Air* 0 21 Past Medical History Medical History: diabetes, heart attack, hypertension Surgical History: cardiac cath, appendectomy, cholecystectomy, hysterectomy, stent Family History Significant Family History: no pertinent family hx Social History Smoking: non-smoker Alcohol Use: none Drug Use: none Reviewed Nursing Reviewed: Vital Signs, Abn. Noted, Nursing Assessment Constitutional: no symptoms reported EENTM: no symptoms reported Respiratory: no symptoms reported Cardiovascular: no symptoms reported Gastrointestinal: see HPI All Other Systems: Reviewed and Negative Physical Exam General Appearance: No Apparent Distress, WD/WN HEENT: Other (Fluid behind left tympanic membrane with brownish discharge.) Respiratory: chest non-tender, lungs clear, normal breath sounds, no respiratory distress, no accessory muscle use Cardiovascular: Normal Peripheral Pulses, Regular Rate, Rhythm, No Edema, No G allop, No JVD, No Murmur Gastrointestinal: Normal Bowel Sounds, Non Tender, Soft Back: Normal Inspection, No CVA Tenderness, No Vertebral Tenderness Extremities: Normal Range of Motion, Non-Tender, Normal Inspection, No Pedal Edema, No Calf Tenderness, Normal Capillary Refill, Pelvis Stable Neurologic/Psychiatric: vision mixer II-XII NML as Tested, No Motor/Sensory Deficits, Alert, Normal Mood/Affect, Oriented x 3 Skin: Normal Color, Warm/Dry Lymphatic: No Adenopathy Results/Orders Results/Orders Orders - FÉLIX ADAMS MD Potassium Chloride (Potassium Chloride) (07/27/22 19:37) Potassium Chloride (Potassium Chloride) (07/27/22 19:43) Xr Chest 1v (07/27/22 20:02) Vital Signs Date Time Temp Pulse Resp B/P (MAP) Pulse Ox O2 Delivery O2 Flow Rate FiO2 07/27/22 18:00 98.1 92 18 158/84 (108) 95 Room Air* 0 21 07/27/22 18:00 98.1 92 18 95 07/27/22 18:00 98.1 92 18 Administered Medications Medications (Trade) Dose Ordered Sig/Tete Route PRN Reason Start Time Stop Time Status Last Admin Dose Admin Ondansetron HCl (Zofran) 4 mg STAT STAT IV 07/27/22 18:37 07/27/22 18:39 DC 07/27/22 18:44 4 MG Potassium Chloride (Potassium Chloride) 40 meq STAT STAT PO 07/27/22 19:37 07/27/22 19:38 DC 07/27/22 19:45 40 MEQ Sodium Chloride 1,000 ml @ 1,200 mls/hr Q50M STAT IV 07/27/22 18:37 07/27/22 19:27 DC 07/27/22 18:44 1,200 MLS/HR Laboratory Tests Test 07/27/22 08:05 07/27/22 18:05 07/27/22 18:38 07/27/22 19:26 Influenza Type A Antigen NEGATIVE (NEG) Influenza Type B Antigen NEGATIVE (NEG) SARS-CoV-2 Antigen (Rapid) POSITIVE (NEGATIVE) *A Group A Streptococcus Screen NEGATIVE (NEGATIVE) White Blood Count 9.0 10^3/uL (4.5-11.0) Red Blood Count 4.86 10^6/uL (4.00-5.20) Hemoglobin 15.0 g/dL (12.0-15.0) Hematocrit 44.8 % (36.0-46.0) Mean Corpuscular Volume 92.2 fL (78-100) Mean Corpuscular Hemoglobin 30.9 pg (26-34) Mean Corpuscular Hemoglobin Concent 33.5 g/dL (33-36.5) Red Cell Distribution Width 13.9 % (11.5-14.5) Platelet Count 154 10^3/uL (150-400) Mean Platelet Volume 9.3 fL (7.8-11.0) Neutrophils (%) (Auto) 73.4 % (41.0-85.0) Lymphocytes (%) (Auto) 15.6 % (24.0-44.0) L Monocytes (%) (Auto) 10.5 % (5.0-12.0) Neutrophils # (Auto) 6.6 10^3/uL (1.8-7.7) Lymphocytes # (Auto) 1.41 10^3/uL1 (1.0-4.8) Monocytes # (Auto) 1.0 10^3/uL (0.3-0.8) H Absolute Immature Granulocyte (auto 0.01 10^3 u/L (0-2) Absolute Eosinophils (auto) 0.0 10^3/uL (0.0-0.2) Immature Granulocytes % 0.10 % (0.00-0.50) Eosinophils % 0.2 % (0.0-5.0) Basophils % 0.2 % (0.0-0.2) Basophils # 0.0 10^3/uL (0.0-0.1) Sodium Level 140 mmol/L (132-145) Potassium Level 2.8 mmol/L (3.6-5.2) L Chloride Level 102.0 mmol/L (96-109) Carbon Dioxide Level 20.6 mmol/L (20.0-32) Anion Gap 20.2 Blood Urea Nitrogen 6 mg/dL (7-18) L Creatinine 0.48 mg/dL (0.59-1.40) L Estimated GFR () 154.7 (>/=60) Est GFR (CKD-EPI)(Non-Afr [place]ian) 127.9 (>/=60) BUN/Creatinine Ratio 12.0 Glucose Level 122 mg/dL (70-110) H Calcium Level 9.1 mg/dL (8.4-10.5) Total Bilirubin 0.6 mg/dL (0.2-1.0) Aspartate Amino Transferase (AST) 27 U/L (0-35) Alanine Aminotransferase (ALT) 26 U/L (12-78) Alkaline Phosphatase 46 U/L (50-136) L Total Protein 7.4 g/dL (6.4-8.2) Albumin 3.7 g/dL (3.4-5.0) Globulin 3.7 Albumin/Globulin Ratio 1.000 Urine Collection Type RANDOM Urine Color YELLOW Urine Appearance CLEAR Urine Bilirubin 1+ (NEGATIVE) H Urine Ictotest NEGATIVE (NEGATIVE) Urine Ketones 4+ (NEGATIVE) H Urine Specific [place] >=1.030 (1.005-1.030) Urine pH 6.0 (4.5-8.0) Urine Protein 2+ (NEGATIVE) H Urine Urobilinogen 0.2 E.U./dL (0.2) Urine Nitrate NEGATIVE (NEGATIVE) Urine Leukocyte Esterase NEGATIVE (NEGATIVE) Urine Glucose (Auto)(UA) NEGATIVE (NEGATIVE) Urine Blood NEGATIVE (NEGATIVE) Urine RBC NONE SEEN RBC/HPF (NONE Urine WBC 5-10 WBC/HPF (0-2) H Urine Squamous Epithelial Cells FEW (<=FEW) Urine Bacteria FEW (NONE SEEN) H Progress Progress Care of patient transferred to Dr. Adams at 1900 Workup is most notable for the hypokalemia, likely attributable to the N/V and the hydrochlorothiazide. We have given IVF here and some zofran, and oral potassium. Pt is positive for Covid and entirely unvaccinated; I have spoken wit h her about using a pulse oximeter and returning if symptoms worsen. We are out of the window for Paxlovid unfortunately. EKG/XRAY/CT/US XRAY: chest XRAY Comments: NAD ER DEPART Departure Time of Disposition: 20:50 Disposition: 01 HOME / SELF CARE / HOMELESS Impression: Primary Impression: COVID-19 virus infection Additional Impressions: Nausea & vomiting Dehydration Otitis media Hypokalemia Condition: Improved Patient Instructions: COVID, [id number], Hypokalemia, Nausea and Vomiting, [id number], Otitis Media, Adult, [id number] Referrals: DAYAMI ARANDA [facility] (PCP) PRIMARY CARE PROVIDER Additional Instructions: STOP your lisinopril/HCTZ for seven days. Take your potassium supplements as instructed. Use the nausea medication as needed. Get a PULSE OXIMETER from a drugstore and use it a few times a day. Any reading below 89% for more than a minute or so should concern you to seek additional care. Use the amoxicillin for your ear infection. Duration or Time Spent with Pa: 35 min Problem Qualifiers Additional Impressions: Nausea & vomiting Vomiting type: unspecified Qualified Codes: R11.2 - Nausea with vomiting, unspecified Otitis media Otitis media type: suppurative Chronicity: acute Laterality: left Recurrence: not specified as recurrent Spontaneous tympanic membrane rupture: with spontaneous rupture Qualified Codes: H66.012 - Acute supp urative otitis media with spontaneous rupture of ear drum, left ear KAL WHITTINGTON MD Jul 27, 2022 18:43 FÉLIX ADAMS MD Jul 27, 2022 20:03
[2022-07-27 18:47] LABS: BASOPHIL % 0.2 % (0.0-0.2); EOSINOPHIL % 0.2 % (0.0-5.0); LYMPHOCYTES # 1.41 10^3/uL1 (1.0-4.8); LYMPHOCYTES % 15.6 % (24.0-44.0); MEAN CORP HGB 30.9 pg (26-34); MONOCYTES % 10.5 % (5.0-12.0); NEUTROPHIL # 6.6 10^3/uL (1.8-7.7); NEUTROPHILS % 73.4 % (41.0-85.0); PLATELET COUNT 154 10^3/uL (150-400); RED CELL DISTRIBUTION WIDTH 13.9 % (11.5-14.5)
[2022-07-27 19:04] LABS: CARBON DIOXIDE 20.6 mmol/L (20.0-32)
[2022-07-27] MEDS ORDERED: POTASSIUM CHLORIDE PO STA (19:37)
[2022-07-27] MEDS ORDERED: POTASSIUM CHLORIDE ONE (19:43)
[2022-07-27 19:49] LABS: BILIRUBIN,URINE 1+ (NEGATIVE); UROBILINOGEN,URINE 0.2 E.U./dL (0.2)
[2022-07-27] MEDS ORDERED: AMOXIL PO STA (20:52)
--- NOTE | 2022-07-27 20:52 | DIREP ---
PROCEDURE:CHEST 1 VIEW COMPARISON:[facility], CR, XRAY CHEST SINGLE VW, 06/30/2022, 02:01 PM. INDICATIONS:covid positive FINDINGS: LUNGS/PLEURA:No significant pulmonary parenchymal abnormalities. No effusions. VASCULATURE:Normal. Unremarkable pulmonary vasculature. CARDIAC:Normal heart size. Tortuosity and calcification of the thoracic aorta. MEDIASTINUM:Normal. No visible mass or adenopathy. BONES:Normal. No fracture or visible bony lesion. OTHER:Negative. CONCLUSION:No acute cardiac or pulmonary disease. Dictated by: Caleb Victoria M.D. on 07/27/2022 at 08:50 PM
[2022-07-27] MEDS ORDERED: AMOXIL PO ONE (20:56)
== END 2022-07-27 21:00 | disposition home or self-care (01) ==
LOC: ER 17:30
DX: U07.1 COVID-19 (principal); R11.2 Nausea with vomiting, unspecified; E11.9 Type 2 diabetes mellitus without complications; E87.6 Hypokalemia; E86.0 Dehydration; H66.92 Otitis media, unspecified, left ear; I10 Essential (primary) hypertension; Z90.49 Acquired absence of other specified parts of digestive tract; Z90.710 Acquired absence of both cervix and uterus
CPT/HCPCS: 99284; 96374; 71045; 96361; 87426; 87086; 80053; 85025; 36415; 87880; 87804 ×2; 81001; 87070; J7030; J2405